=== PATIENT | female | born 1945 ===

== ENCOUNTER 2017-09-06 11:03 | Inpatient (IN) | payer OTHER ==
[~2017-09-06] VITALS: Ht 157.4 cm; Wt 63.5 kg
--- NOTE | ~2017-09-06 | PR ---
[place], [place] PROGRESS NOTE [id number] #: [id number] ROOM: 315 DOCTOR: MARYURI CAREY MD BIRTHDATE: [birth year] DOS: 09/23/2017 ADDENDUM CHIEF COMPLAINT: "I hope I am going today." SUMMARY OF THE VISIT: The patient was interviewed in the dining area. She once again reiterated her wish to be able to leave and go into a care home. She reports that she is feeling well and is anxious to do so. She is exhibiting improved sleep and appetite. Later, she ambulated with some assistance down the [place]. She convincingly denies medication side effects. MENTAL STATUS AT DISCHARGE: The patient is alert and oriented with only mild time gaps. Mood does seem to be strongly trending towards euthymia. Affect is much more appropriate. There are no symptoms of teja or psychosis. For the most part memory is intact. PLAN: At this point in time is to discharge her to a long-term care facility. Unfortunately, we have been having difficulty finding a long-term care facility that is appropriate for her in the [facility]. We have increased our outreach now to facilities near [place] and also to facilities in the [facility] where her lives. He has expressed a desire to be able to move in with her into a long-term care facility and we will proceed with this discharge option. We will discharge the patient then to the least restrictive environment as soon as possible. MARYURI CAREY MD CM:PNTRANS [phone] MARYURI CAREY MD 09/24/17 0838 interface
--- NOTE | ~2017-09-06 | PR ---
[place], [place] PROGRESS NOTE NAME: NOAH GEORGE UNIT #: [id number] ROOM: 315 DOCTOR: MARYURI CAREY MD BIRTHDATE: [birth year] DOS: 09/15/2017 CHIEF COMPLAINT: "I don't feel quite right." SUMMARY OF THE VISIT: The patient was interviewed as she sat in a wheelchair at the end of the table, watching television. She reported to me that she was not feeling quite right and was feeling cloudy in her thoughts. She still is not sleeping and eating as well as she would like to and still having intrusive thoughts. MENTAL STATUS: She is alert and oriented with some mild time gaps. Mood does seem to be trending towards euthymia and affect is much more appropriate. There are no symptoms of hypomania or teja at the present time. Short term memory has gaps. PLAN: I will go ahead and start her on lactulose 30 grams b.i.d. given her elevated serum ammonia level of 63. I will discontinue the Depakote that was started upon admission in case it is contributing to her higher ammonia level and recheck later in her stay. I will discontinue the Haldol p.r.n. in lieu of increasing her straight Abilify from 5 to 10 mg at bedtime, continue to engage in individual and lemon milieu activity with the ultimate plan to return to the least restrictive environment when psychiatrically stable. MARYURI CAREY MD CM:PNTRANS [phone] MARYURI CAREY MD 09/15/17 1130 interface
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
--- NOTE | ~2017-09-06 | PR ---
[place], [place] PROGRESS NOTE [id number] UNIT #: [id number] ROOM: 315 DOCTOR: Sadia MTZ,TAYO BIRTHDATE: [birth year] DOS: 09/12/2017 SUBJECTIVE: The patient seen and spoke with the staff. Per staff, the patient is doing well. No behavior problems or issues. Took her medication, Depakote last night. The patient was on the [place] chair. She said that she took the Depakote and the Abilify. She said that she feels she is not shaking as much. Denied any side effect from the medication. MENTAL STATUS EXAMINATION: Pleasant, cooperative, described her mood as "okay." Affect, mood congruent. Thought process goal directed. No flight of ideas or loosening of association. She denied auditory or visual hallucination. No delusion or paranoia noted. She denied suicidal ideation, intent or plan. She also denied homicidal ideation, intent or plan. ASSESSMENT: Bipolar disorder, mixed type. PLAN: 1. Continue current medication and care. 2. Continue redirection. 3. Mcmanus milieu. 4. Final medication management and discharge plan by the regular team. TAYO MTZ MD CM:PNTRANS [phone] Sadia MTZ 09/12/17 0956 interface
--- NOTE | ~2017-09-06 | PR ---
[place], [place] PROGRESS NOTE [facility]: [id number] UNIT #: [id number] ROOM: 315 DOCTOR: MARYURI CAREY MD BIRTHDATE: [birth year] DOS: 09/17/2017 CHIEF COMPLAINT: "I slept a little better, thank you." SUMMARY OF THE VISIT: The patient was interviewed once again in the dining area where she was eating her breakfast. She reported that she slept better, but is still feeling depressed and overwhelmed. Of note, as I approached her, tremors of her upper extremities seem to worsen, whether this is volitional or anxiety driven is unclear. MENTAL STATUS: She remains alert and oriented to person, place, and approximate to time. Mood does seem to be trending towards euthymia. Affect is more appropriate. Her responses still tend to be short and simple and she is not spontaneous. There are no symptoms of teja or hypomania and she is guarded as far as any symptoms suggestive of psychosis. Memory for short term events has gaps, otherwise she is intact. PLAN: I will go ahead and increase her Cogentin slightly from 0.5 mg daily to 0.5 mg twice daily. I will have nursing monitor her tremors to see if there is a pattern to their presentation and get a better sense if this is somatization versus reality. We will continue to explore placement options, so we can potentially place her closer to family living in [facility]. We will discharge then when psychiatrically stable. MARYURI CAREY MD CM:PNTRANS [phone] MARYURI CAREY MD 09/17/17 1040 interface
--- NOTE | ~2017-09-06 | PR ---
[place], [place] PROGRESS NOTE [id number] UNIT #: [id number] ROOM: 315 DOCTOR: Sadia MTZ,TAYO BIRTHDATE: [birth year] DOS: 09/08/2017 PSYCHIATRIC PROGRESS NOTE SUBJECTIVE: Patient seen and spoke with the staff. Per staff, patient is doing good. Slept well. No behavioral problems or issues. Med compliant. Patient was in her room. She reports doing well and feeling better. She feels the medication is helping her. She said that she is looking forward to go with her daughter. She did not express any problems or concerns, but she told me that she does not want to take the trazodone. MENTAL STATUS EXAMINATION: Patient was pleasant and cooperative. Described her mood as "okay." Affect, mood congruent. Thought process goal directed. No flight of ideas or loosening of association. She denied auditory or visual hallucination. No delusion or paranoia noted. She denied suicidal ideation, intent or plan. She also denied homicidal ideation, intent or plan. Insight and judgment poor to fair. ASSESSMENT: Bipolar disorder, mixed type. PLAN: 1. I will discontinue her trazodone. 2. I will continue the other medications. 3. Continue redirection. 4. Mcmanus milieu. TAYO MTZ MD CM:PNTRANS [phone] Sadia MTZ 09/09/17 0043 interface
--- NOTE | ~2017-09-06 | PR ---
[place], [place] PROGRESS NOTE NAME: [facility] [id number] UNIT #: [id number] ROOM: 315 DOCTOR: Sadia MTZ,TAYO BIRTHDATE: [birth year] DOS: 09/09/2017 PSYCHIATRIC PROGRESS NOTE SUBJECTIVE: The patient seen and spoke with the staff. Per staff, the patient is doing well, still somatic. Slept well last night. No behavior problems or issues. The patient was pleasant and cooperative. She reports doing good. She feels that the medication is helping her. She denies any side effect from the medication also. She said that she would like to go back with her daughter in [place] and does not want to go back with . MENTAL STATUS EXAMINATION: The patient was pleasant, cooperative, described her mood as "okay." Affect, mood congruent. Thought process goal directed. No flight of ideas or loosening of association. She denied auditory or visual hallucination. No delusion or paranoia noted. She denied suicidal ideation, intent or plan. She also denied homicidal ideation, intent or plan. ASSESSMENT: Bipolar disorder, mixed type. PLAN: 1 Continue current medication and care. 2. Continue redirection. 3. Encourage activity and lemon milieu. TAYO MTZ MD CM:OXANA [phone] Sadia MTZ 09/09/17 2104 interface
--- NOTE | ~2017-09-06 | PR ---
[place], [place] PROGRESS NOTE [id number] UNIT #: [id number] ROOM: 315 DOCTOR: Sadia MTZ,TAYO BIRTHDATE: [birth year] DOS: 09/11/2017 PSYCHIATRIC PROGRESS NOTE SUBJECTIVE: Patient seen and spoke with the staff. Per staff, patient is shaking a lot and leaning on one side and also reported to the staff that she is not feeling good. When I went to see the patient, patient was in the day area. She was shaking uncontrollably. She said that she would like to stop the Risperdal as I told her in the past. Initially, I was a little bit hesitant because patient did not want to change the Risperdal, but since she wanted to now, we talked about Abilify. Patient agreed with that. Patient also reported racing thoughts and mood swings and wants to give a trial on a mood stabilizer, Depakote. She reports good sleep. Denied any problem with her appetite. MENTAL STATUS EXAMINATION: Patient was pleasant and cooperative. Described her mood as "I don't know." Affect broad range. Thought process goal directed. No flight of ideas, loosening of association. She denied auditory or visual hallucination. No delusion or paranoia noted. She denied suicidal ideation, intent or plan. She also denied homicidal ideation, intent or plan. ASSESSMENT: Bipolar disorder, mixed type. PLAN: 1. I will discontinue her Risperdal. 2. I will start her on Abilify 5 mg at night. 3. I will start her on Depakote 125 mg twice a day. TAYO MTZ MD CM:OXANA [phone] Sadia MTZ 09/12/17 0244 interface
--- NOTE | ~2017-09-06 | PR ---
[place], [place] PROGRESS NOTE NAME: [facility] [id number] UNIT #: [id number] ROOM: 315 DOCTOR: Sadia MTZ,TAYO BIRTHDATE: [birth year] DOS: 09/10/2017 PSYCHIATRIC PROGRESS NOTE SUBJECTIVE: The patient seen and spoke with the staff. Per staff, the patient is doing well. No behavioral problems or issues. Medication compliant. Reportedly, the patient's daughter wanted to take her to [place] and keep her with her. The patient was pleasant, cooperative. She reported doing well. Denied depressed mood or hopelessness. Denied any other neurovegetative signs and symptoms of depression. She vehemently denied any thoughts of harming herself or her . She said that she is happy that she is going to go back to go and stay with her daughter. MENTAL STATUS EXAMINATION: The patient was pleasant, cooperative, described her mood as "good." Affect, mood congruent. Thought process goal directed. No flight of ideas or loosening of associations. She denied auditory or visual hallucination. No delusion or paranoia noted. She denied suicidal ideation, intent or plan. She also denied homicidal ideation, intent or plan ASSESSMENT: Bipolar disorder, current episode mixed. PLAN: 1. Continue current medication and care. 2. Continued addiction. 3. Mcmanus milieu. 4. Discharge planning. TAYO MTZ MD CM:OXANA [phone] Sadia MTZ 09/10/17 2340 interface
--- NOTE | ~2017-09-06 | PR ---
[place], [place] PROGRESS NOTE NAME: NOAH GEORGE UNIT #: [id number] ROOM: 315 DOCTOR: MARYURI CAREY MD BIRTHDATE: [birth year] DOS: 09/19/2017 CHIEF COMPLAINT: "When do I get to go." SUMMARY OF THE VISIT: The patient was interviewed as she sat in the dining area in a wheelchair waiting for her breakfast. She engaged readily in conversation and was fixated on being able to leave the hospital and go to a jail that was closer to her family in [place]. Of note, she was much less tremorous this morning than she had been previously. She seemed to engage more readily and was much more goal directed in her thinking. Nurses report continued somatization and fluctuations in her mental status, however. MENTAL STATUS: She is alert and oriented to person, place, very approximate to time. Mood does seem to be strongly trending towards euthymia. Affect is much more appropriate. There is no teja or hypomania. There are no overt auditory or visual hallucinations voiced. Memory for the most part is intact. PLAN: I will go ahead and increase her Mysoline from 25 to 50 mg at bedtime. Continue to engage in individual and lemon milieu activity with the ultimate plan to discharge to [facility] when psychiatrically stable. MARYURI CAREY MD CM:PNTRANS [id number] MARYURI CAREY MD 09/19/17 1029 interface
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
--- NOTE | ~2017-09-06 | PR ---
[place], [place] PROGRESS NOTE NAME: NOAH GEORGE UNIT #: [id number] ROOM: 315 DOCTOR: MARYURI CAREY MD BIRTHDATE: [birth year] DOS: 09/18/2017 CHIEF COMPLAINT: "I would rather go to [place]." SUMMARY OF THE VISIT: The patient was interviewed in the dining area where she sat in her wheelchair. The patient initially as I approached appeared to be sleeping; however, she very quickly awoke, engaged in conversation and began eating without difficulty. Of note, the tremor that was so evident in previous visits did not seem to be there, instead she seemed to be feigning sedation. I discussed with her the options that she had in either to return home to her or to a fdc that would be approximately an hour away from [place]. She voiced a preference to return to a fdc that would be close to [place] rather than returning home at this point. A discussion yesterday with the treatment team indicated that the family noted that she had improved greatly with Mysoline as far as improving her overall level of not having tremors. At this point in time, I will go ahead and make the switch over from the Cogentin to the Mysoline. MENTAL STATUS: She is alert and oriented with some time gaps. Her responses tended to be short and simple and she was not spontaneous, but she was at least engaging. There is no symptom suggestive of hypomania or teja. There were no overt auditory or visual hallucinations. No delusions, no paranoia was voiced. Short term memory has gaps. PLAN: As mentioned previously, I will discontinue Cogentin and start Mysoline 25 mg at bedtime. Continue to explore placement options, discharging then when psychiatrically stable and when an appropriate option presents itself. MARYURI CAREY MD CM:PNTRANS MARYURI CAREY MD 09/18/1745 interface
--- NOTE | ~2017-09-06 | DS ---
[place], [place] DISCHARGE SUMMARY NAME: NOAH GEORGE UNIT #: [id number] ROOM: 315 DOCTOR: MARYURI CAREY MD BIRTHDATE: [birth year] DOS: 09/22/2017 ADDENDUM CHIEF COMPLAINT: "Am I going to be able to leave today?, I am ready to go." SUMMARY OF HOSPITAL COURSE: The patient was interviewed in the dining area where she sat comfortably in her wheelchair. Of note, as I approached, there were markedly decreased tremors. She engaged readily in normal conversation. She was focused on being able to leave the hospital and was hopeful to be able to go into a jail that was at least close to [place]. We discussed at length what the process was going to be and that she would be discharged to a jail and that hopefully this would be a temporary solution as she awaited an actual permanent placement into a jail in the [place] area. She nodded in approval and voiced that this would be a positive step for her. Of note, the patient did not exhibit any agitation or aggression. There was no mood lability. There were no suicidal thoughts, homicidal thoughts or any self-injurious thoughts. MENTAL STATUS NOW AT FINAL DISCHARGE: The patient is alert and oriented with some mild gaps. Mood does seem to be strongly trending towards euthymia. Affect is much more appropriate. As mentioned previously, there is no teja or hypomania. There are no gross psychotic symptoms. Memory for the most part is intact. FINAL DIAGNOSES: As per the previous discharge summary. DISPOSITION: To a long-term care facility. All of her prescriptions have been printed and will be sent with her. MARYURI CAREY MD CM:DISCHARG [id number] MARYURI CAREY MD 09/23/17 0125 interface
[2017-09-06] MEDS ORDERED: FLONASE ALLERG9.9 ML NAS (11:46)
[2017-09-06] MEDS ORDERED: DITROPAN XL5 MG PO (11:48)
[2017-09-06] MEDS ORDERED: ASPIR LOW81 MG PO (11:50)
[2017-09-06] MEDS ORDERED: LAMICTAL150 MG PO (11:52)
[2017-09-06] MEDS ORDERED: TRAZODONE50 MG PO (11:53)
[2017-09-06] MEDS ORDERED: ADVIL200 MG PO (11:54)
[2017-09-06] MEDS ORDERED: RISPERDAL3 M1 PO (11:54)
[2017-09-06] MEDS ORDERED: NEURONTIN100 MG PO (11:55)
--- NOTE | 2017-09-06 13:33 | NUR ---
NOAH GEORGE a 72 year old F admitted via ambulance from the ADMITTING as a emergency 72 hr. hold admission. Arrived on unit at 1333. ALLERGIES: ATIVAN, XANAX, SEROQUEL AND NEUROTIN. Vital signs are: 98.1-72-16 190/92. The client signed the following forms with stated understanding: Authorization For The Release of Medical Information, Clothing List, Consent to Voluntary Admission and Hospitalization, Consent and Release Forms/Receipt of Rights, Acknowledgement of Advance Directive Information, Behavioral Health Consent Form, and Informed Consent of Medications. Admitted under the services of Dr. BIBI M.D.,[facility]. A search was conducted and hazardous articles were removed. Client was oriented to the unit. COREEN DUFFY
[2017-09-06] MEDS ORDERED: NORVASC10 MG PO (13:38)
--- NOTE | 2017-09-06 13:42 | NUR ---
DR. SZYMANSKI NOTIFIED OF NEW ADMISSION, MEDICATIONS AND DX LIST UPDATED FOR REVIEW. PATIENT WILL BE UNDER THE CARE OF DR. OROSCO.
--- NOTE | 2017-09-06 13:55 | NUR ---
DR. SZYMANSKI NOTIFIED OF MANUAL BP 190/92.
[2017-09-06 13:57] VITALS: BP 190/92
--- NOTE | 2017-09-06 15:25 | NUR ---
DR CUI NOTIFIED OF PATIENT'S ALLERGY TO NEUROTIN.
[2017-09-06] MEDS ORDERED: TRAMADOL HCL50 MG PO (15:35)
[2017-09-06] MEDS ORDERED: BISA-LAX5 MG PO (15:36)
[2017-09-06] MEDS ORDERED: VITAMIN D50000 UNIT PO (15:36)
[2017-09-06] MEDS ORDERED: DOK100 MG PO (15:37)
--- NOTE | 2017-09-06 15:48 | NUR ---
MANUAL BP CHECKED 180/80.
--- NOTE | 2017-09-06 16:04 | NUR ---
PATIENT IS VERY FEARFUL, OTHER PATIENTS WALKING PAST ROOM, PATIENT GOT STARTLED AND COMPLAIN OF CHEST PAIN. DR CUI NOTIFIED OF CHEST PAIN. PATIENT ASSISTED IN WHEELCHAIR IN DINING ROOM WITH OTHER PATIENT. NO FURTHERS COMPLAINTS AT THIS TIME.
--- NOTE | 2017-09-06 16:44 | NUR ---
DR. CUI NOTIFIED OF PATIENT REFUSING EKG TO BE DONE.
--- NOTE | 2017-09-06 17:48 | NUR ---
SPOKE WITH DAUGHTER REGARDING PATIENT'S CONDITIONS, BEHAVIORS AND REFUSAL OF TREATMENT/MEDICATIONS. PATIENT'S DAUGHTER STATED THAT HER MOM HAS BEEN ON XANAX FOR YEARS, OVERDOSED ONCE AND NOW THE MEDICATION IS LISTED AN ALLERGY. UPDATED DR. MTZ ON PATIENT'S REFUSAL OF TRAZDONE AND ALLERGY LIST.
[2017-09-06 19:58] VITALS: BP 143/70
--- NOTE | 2017-09-06 21:11 | NUR ---
PT MAKING FREQUENT DEMANDS OF STAFF DURING PREVIOUS SHIFT. BEHAVIOR HAS CONTINUED TO THIS POINT. PT FREQUENTLY PULLING WAITER/WAITRESS ECONOMY CLASS KIM CORD TO "TUCK MY ARM IN." AFTER THE FIRST TWO OCCURENCES, NURSE LIMIT SET WITH PATIENT, EDUCATING HER REGARDING THE IMPORTANCE OF PRIORITIZATION OF CARE. PT THEN TUCKED HER OWN ARM INTO THE BLANKET. CONTINUE TO REINFORCE LIMITS WITH POSTIVE AFFIRMATION.
--- NOTE | 2017-09-07 00:48 | NUR ---
24HR CHART CHECKS COMPLETE
[2017-09-07 04:26] LABS: ALBUMIN 3.1 gm/dl (3.1-4.5); ALKALINE PHOSPHATASE 64 U/L (45-117); BUN 15 mg/dl (7-24); CHLORIDE 103 mmol/L (98-107); CHOLESTEROL 236 mg/dL (<200); CREATININE 0.83 mg/dL (0.55-1.02); HDL CHOLESTEROL 73 mg/dl (40-60); LDL CHOLESTEROL 155 mg/dL (9-159); POTASSIUM 4.1 mmol/L (3.5-5.1); SGOT/AST 6 IU/L (3-35); SGPT/ALT 18 U/L (12-78); SODIUM 139 mmol/L (136-145); TOTAL PROTEIN 6.7 gm/dL (6.4-8.2); TRIGLYCERIDES 42 mg/dl (<150); VLDL CHOLESTEROL 8 mg/dL (6-40)
--- NOTE | 2017-09-07 04:30 | NUR ---
PT YELLING OUT "HELP ME." NURSE COMMANDS STAFF TO "PUT MY LEGS DOWN." PT CAPABLE OF AMBULATING HERSELF AND POSTITIONING HERSELF WITH NO DEFICITS IN LEG STRENGTH. NURSE REPOSITIONED PATIENT, THEN SHE WOULD BEND HER KNEES AGAIN UNDER THE BLANKET DELIBRETLY, DEMANDING FOR HER LEGS TO BE "PUT DOWN" AGAIN. NURSE LIMIT SET WITH PATIENT. UNABLE TO VOICE THE TRUE CAUSE OF THESE ATTENTION SEEKING BEHAVIORS. PT UNSATISFIED WITH ANY ATTEMPTS STAFF MAKES TO ACCOMMODATE NEEDS. ENCOURAGE APPROPRIATE VOCALIZATION OF EMOTIONS TO COMBAT SOMATIC COMPLAINTS.
--- NOTE | 2017-09-07 05:31 | NUR ---
PT YELLING OUT FOR STAFF FOR ASSITANCE INTO WHEELCHAIR. PT WHEELED INTO THE DINING ROOM TO AWAIT BREAKFAST, PER HER REQUEST. SOON STAFF ARRIVED IN THE DINING ROOM, PT REQUESTED TO RETURN TO BED. PT INSTRUCTED THAT THIS BEHAVIOR IS UNNACCEPTABLE. NURSE, YET AGAIN, ENCOURAGED PATIENT TO VERBALIZE EMOTIONS LEADING TO THIS BEHAVIOR AND ANY INSIGHT INTO HOW WE CAN MEET HER NEEDS. PT REPLIED "HOW ARE YOU SO CRUEL, HELP ME." PT REFUSES TO ACKNOWLEDGE MANIPULATIVE BEHAVIORS. CONTINUE TO LIMIT SET AND REINFORCE POSITIVE BEHAVIORS.
--- NOTE | 2017-09-07 06:13 | NUR ---
PT SLEPT <2HRS WITH FREQUENT INTERRUPTIONS. REFER TO FLOWSHEET FOR ADDITIONAL INFO.
[2017-09-07 08:06] VITALS: BP 154/78
--- NOTE | 2017-09-07 15:40 | NUR ---
PT ALERT TO PERSON,PLACE AND TIME. PT MED COMPLIANT WITHOUT DIFFICULTY, MED EDUCATION PROVIDED. PT MOOD IS IRRITABLE AT TIMES. PT DEMANDING OF STAFF, MAKING MULTIPLE REQUESTS OF STAFF FOR THINGS THAT PT IS CAPABLE OF DOING, SUCH MOVING HER ARM UNDERNEATH OF HER BLANKET. PT REFUSED TO FEED HERSELF LUNCH, STATING " I NEED YOU TO DO IT FOR ME", ADVISED PT THAT SHE WAS ABLE TO FEED HERSELF BREAKFAST AND RE-ENFORCED IMPORTANCE OF PT MAINTAINING INDEPENDENCE OF ADL'S INCLUDING FEEDING SELF, FINGER FOODS PROVIDED. NO HALLUCIANTIONS OR DELUSIONS NOTED. PT DENIES ANY HOMICIDAL/SUICIDAL THOUGHTS. PT UP TO WHEELCHAIR REQUIRING 1 ASSIST FOR TRANSFERS. PT CONTINENT OF BOWEL AND BLADDER. TREATMENT PLAN TARGETS #1- ALTERTED THOUGHT PROCESS R/T INCREASED CONFUSION AEB VISUAL HALLUCINATIONS AND THREATENING BEHAVIORS, #2- AT RISK FOR FALLS. FALL PRECAUTIONS MAINTAINED PER POLICY. PLAN IS TO MONITOR PT BEHAVIORS ON Q15 MIN SAFTEY CHECKS, ENCOURAGE PT TO VOICE ANY HALLUCINATIONS, PRESENT RELAITY TO PT WITH EACH INTERACTION NEEDED.
--- NOTE | 2017-09-07 18:31 | NUR ---
ATTEMPTED TO NOTIFY OF PT ABNORMAL SRP LEVEL. NO ANSWER AT THIS TIME.
[2017-09-07 19:49] VITALS: BP 131/70
--- NOTE | 2017-09-07 21:19 | NUR ---
REFUSED CALAZIME LOTION AND BABY ASA. STATES ONLY TAKE ASA ONCE A DAY AND THE BUTTOCK CREAM AFTER SHOWER. REFUSED TRAZADONE BECAUSE SHE SAYS HER PSYCHIATRIST SAYS SHE DOESN'T NEED IT ANY MORE. TRIED TO DISCUSS THE IMPORTANCE OF TAKING MEDICATION THE HOSPITAL PSYCHIATRIST DEEMS NECESSARY TO HELP HER GET BETTER. UNABLE TO REDIRECT CLIENT.
--- NOTE | 2017-09-07 22:21 | NUR ---
CLIENT WATCHES OTHER PEERS AND WANTS WHAT THEY HAVE. IF THEY ARE BEING FED SHE FEELS SHE NEEDS TO BE FED. IF THEY ARE BEING PUSHED IN A WHEELCHAIR DUE TO WEAKNESS SHE ALSO FEELS SHE NEEDS TO BE PUSHED. DISCUSSED WITH CLIENT THAT I WOULD GET HER A WALKER THAT IS WHAT SHE USES AT HOME BUT SHE REFUSED. STATES SHE IS WAITING FOR PHYSICAL THERAPY TO COME SEE HER. ASKED TO BE FED LIKE PEER AND EXPLAINED THAT SHE IS CAPABLE OF FEEDING SELF AND WE ARE HERE TO HELP HER NOT MAKE HER DEPENDENT. DISCUSSED THE IMPORTANCE OF HER DOING MUCH FOR HERSELF POSSIABLE, LIKE PUSHING SELF DOWN BANG IN WHEELCHAIR TO PREVENT MUSCLE BREAKDOWN AND WEAKNESS. CLIENT DID COMPLETE ALL THE TASKS ABOVE WITHOUT ANY DIFFICULTY. WILL CONTINUE EMOTIONAL SUPPORT
--- NOTE | 2017-09-08 02:04 | NUR ---
24 HR chart check completed.
--- NOTE | 2017-09-08 06:42 | NUR ---
SLEPT WELL PAST 220
[2017-09-08 08:57] VITALS: BP 141/76
--- NOTE | 2017-09-08 10:00 | NUR ---
Treatment Team was hedl withthe following: Dr. Durant (phone), RNs, AT, SWs. Pt knows that she is here d/t Bipolar episode. Pt wants to go to [place] to live to be closer to her Dtr.
--- NOTE | 2017-09-08 11:04 | NUR ---
PHYSICAL THERAPY Physical Therapy Evaluation completed this date. See eval document for further details. Will begin PT intervention to address the impairments of trunk and sandro LE weakness, decreased functional mobility I, and difficulty [place]ulating[place] [address] based on chart review and PT eval. Cierra Currie, PT
--- NOTE | 2017-09-08 11:39 | NUR ---
Exercise/Reminiscing/Positive Traits Patient did attend group as well as participated in group this morning.Patient was appropriate during group. Patient interacted with other patients positivly,as well as giving positive encouragement to others and herself
--- NOTE | 2017-09-08 13:05 | NUR ---
SW COMPLETED PASRR AND FAXED IT TO [facility] FOR PROCESSING.
--- NOTE | 2017-09-08 14:24 | NUR ---
Patient c/o poor sleep and being tired. Patient agreed to Ot eval 09/09/17 am. OTR will attempt at a later date. Thank you for this referral. Adenike Herrera OTR/L
--- NOTE | 2017-09-08 15:47 | NUR ---
Craft and positive trait group Patient attended group and actively participated. Patient easily stated positive traits about self however increased difficulty with self traits. Patient reports feeling happier after attended group and realizes positive things about self.
[2017-09-08 18:51] LABS: BILIRUBIN NEGATIVE (NEGATIVE); BLOOD NEGATIVE (NEGATIVE); CLARITY SL CLOUDY (CLEAR); COLOR YELLOW (YELLOW); GLUCOSE NEGATIVE (NEGATIVE); KETONE NEGATIVE (NEGATIVE); LEUKO ESTERASE NEGATIVE (NEGATIVE); NITRITE NEGATIVE (NEGATIVE); UROBILINOGEN 0.2 E.U./dl (0.2-1.0)
[2017-09-08 18:59] LABS: BACTERIA TRACE; WBC 0-2 wbc/hpf (0-5)
--- NOTE | 2017-09-08 19:34 | NUR ---
NOAH IS ALERT AND ORIENTED X4. PLEASANT AND COPOERATIVE WITH STAFF. MOOD IS DEPRESSED THIS SHIFT. DENIES ANY SI/HI. MEDICATION COMPLIANT WITHOUT DIFFICULTY. INSIGHT NOTED THIS SHIFT WHEN SHE EXPRESSED SHE WAS ADMITTED D/T A "BIPOLAR EPISODE." ATTENDING AND PARTICIPATING IN GROUP THERAPY. STATES SHE IS STARTING TO FEEL BETTER. DENIES ANY SENSORY DISTURBANCES AND NONE ARE NOTED. APPETITE FAIR FOR MEALS. WILL CONTINUE TO ENCOURAGE PT TO ATTEND AND PARTICIPATE IN GROUP THERAPY. CONTINUE Q15 MIN CHECKS PER OBSERVATION ORDERS.
[2017-09-08 20:05] VITALS: BP 142/68
--- NOTE | 2017-09-08 23:37 | NUR ---
RESTING AT THIS TIME. IRVING HOLLAND CALLED OVERHEAD AND SHE IMMEDIATLY CALLED STAFF TO ROOM STATING "I HAVE CHEST PAIN TOOL". VITALS STABLE. HEART RATE REGULA NON BOUNDING. SPOKE WITH CLIENT AND SHE ADMITTED THAT SHE HEARD THE IRVING BLUE AND THOUGHT IT COULD BE ABOUT HER. EMOTIONAL SUPPORT PROVIDE.
--- NOTE | 2017-09-09 04:17 | NUR ---
24 HR chart check completed. UP A COUPLE TIMES TO VOID. EMOTIONAL REASSURANCE NEEDED MORE THIS SHIFT FOR HER C/O ANXIETY AND PAIN. MOVING SELF IN BED WITHOUT ASSISTANCE
--- NOTE | 2017-09-09 06:55 | NUR ---
slept well past 0100am
[2017-09-09 08:13] VITALS: BP 119/64
--- NOTE | 2017-09-09 08:45 | NUR ---
PHYSICAL THERAPY Pt seen this AM 1:1 for her therapy session, Pt up in the day room in her wheelchair. Wheeled out into the de [place] santos, with verbal cueing on what we were going to do. Transfer sit/stand and up on wheeled walker standing balance MOD A X 1. Gait 45' X 1, MOD A X 1, with cueing for safety and she said that she was ready to sit, sitting rest. Followed by another gait with W/W 105' X 1, cueing for safety and that she can do this sitting rest. End with act Ex to bilateral LE of marching, LAQ's, ankle pumps with cueing for each X 20 reps each. MARIA DEL CARMEN LOPEZ PHLEBOTOMY MANAGER.
--- NOTE | 2017-09-09 09:26 | NUR ---
TREATMENT TEAM WAS HELD WITH THE FOLLOWING: DR. ESTEBAN (PHONE), RNs, AT, SW. PT HAVING SOMATIC COMPLAINTS. SW REPORTED PT TO BE DISCHARGED TO [facility] IN [facility] PER DTR'S AND PT'S REQUEST. PT WAS SUBMITTED YESTERDAY.
--- NOTE | 2017-09-09 10:49 | NUR ---
Spoke with dtr. Sun on phone in regards to more referrals for the [place] area. pt. dtr states that "[facility]" and "[facility]" would be good places for her mother tpo go. This SWS also reinforced that referrals will need to be sent out to several places in hopes of finding an open bed. The dtr. sattes to send out referrals in the [facility], [facility]'s.
--- NOTE | 2017-09-09 11:35 | NUR ---
Social Raymond Patient attended group with appropriate behaviours and participation. Patient able to answers social questions on board with well thought out answers for coping skills/self awareness.
--- NOTE | 2017-09-09 11:46 | NUR ---
PT SIGNED IN VOLUNTARY PT STATED SHE UNDESTOOD WHAT A VOLUNTARY ASMISSION CENSENT WAS. PT WAS READ THE VOUNTARTY CONSENT AND AGREED. VOLUNTARY WAS WITNESSED BY THIS NURSE AND SOCIAL WORK
--- NOTE | 2017-09-09 17:01 | NUR ---
[facility] KATIUSKA GOMEZ INFORMING SW THAT PT WILL E HAVING A DRGabrielle TO CALL TO DR. MTZ BETWEEN 10AM - 1PM O 09/10/17. NOTIFIED DIRECTOR OF CALL TO TELL DR. DR. MTZ.
[2017-09-09 20:00] VITALS: BP 134/64
--- NOTE | 2017-09-10 01:56 | NUR ---
24 HR chart check completed.
--- NOTE | 2017-09-10 06:17 | NUR ---
PT CONTINUES TO HAVE A WIDE VARIETY OF SOMATIC COMPLAINTS, HOPELESS AND HELPLESS. MED COMPLIANT WITH OUT DIFFICULTY, STATING SHE COULD NOT DRINK WATER BECAUSE SHE COULD NOT LIFT THE CUP TO HER LIPS. PT PROVIDED 1-1 DENYING HALLUCINATIONS AT THIS TIME. MED EDUCATION PROVIDED PT VERBALIZED UNDERSTANDING. CONSUMED HS SNACK, SLEPT 8 HOURS WITH OUT INTURRUPTION. Q 15 MIN CHECKS FOR SAFETY MAINTAINED.
--- NOTE | 2017-09-10 07:49 | NUR ---
09/09/17 Afternoon Self Esteem Story/Coping Skills Jeopardy Patient did not attend group. Patient refused,wanting to lay down. Patient was encouraged to join group but paient absolutely refused to join group
[2017-09-10 08:00] VITALS: BP 141/66
--- NOTE | 2017-09-10 10:43 | NUR ---
PHYSICAL THERAPY Carine seen this AM pt supine in bed and not going to get up or take her therapy, will stop back later. MARIA DEL CARMEN LOPEZ LIVE IN HOUSEKEEPER NANNY.
--- NOTE | 2017-09-10 10:45 | NUR ---
PHYSICAL THERAPY I stopped back 1 hour 20 min later Pt up in the day room just finished her breakfast. Carine said no and i am not getting up! MARIA DEL CARMEN LOPEZ DISPATCH LEAD.
--- NOTE | 2017-09-10 11:15 | NUR ---
Reminiscing Patient was in attendence for group with limited participation. Patient would fall asleep for a time then waken to participate. Patient did not show signs of hallucinations throughout group.
--- NOTE | 2017-09-10 14:37 | NUR ---
case management received a message from Rosalba at [employer], after peer to peer was done, last covered day is 09/09/17, all days after are denied
--- NOTE | 2017-09-10 15:58 | NUR ---
Crb4houieius my strengths Patient was in attendence for group as well as participated. Patient did leave for personal reasons approxamatley 45 minutes into group. Patient showed no signs of confusion or stated any visual hallucinations through out group
--- NOTE | 2017-09-10 18:37 | NUR ---
PATIENT HAS BEEN MORE ISOLATIVE AND LESS INTERACTIVE THIS SHIFT. CALM AND COOPERATIVE WITH STAFF. MEDICATION COMPLIANT WITHOUT DIFFICULTY. ALERT AND ORIENTED WITH PERIODS OF CONFUSION NOTED. INCREASE STAFF ASSISTANCE NEEDED FOR ADLS NOTED. INCREASE WEAKNESS WITH ADHEDONIA NOTED. BILATERAL UPPER EXTREMITY TREMORS NOTED. ATTENDING GROUP THERAPY AT TIMES WITH MUCH STAFF ENCOURAGEMENT. APPETITE GOOD THIS SHIFT, TAKING FLUIDS WELL. CONTINUE Q15 MIN OBSERVATION CHECKS PER ORDERS. CONTINUE TO ENCOURAGE PT TO PARTICIPATE IN GROUP THERAPY.
[2017-09-10 19:22] VITALS: BP 141/72
--- NOTE | 2017-09-11 00:15 | NUR ---
PT VOICING PAIN TO BLE LEVEL OF 4 CRAMPY UNRELIEVED BY REPOSITIONING. TYLENOL 650 MG ADMINISTERED.
--- NOTE | 2017-09-11 01:10 | NUR ---
PT SLEEPING SOUNDLY AT THIS TIME PRN TYLENOL EFFECTIVE
--- NOTE | 2017-09-11 03:57 | NUR ---
24 HR chart check completed.
--- NOTE | 2017-09-11 05:29 | NUR ---
PT ALERT TO PERSON PLACE AND TIME WITH PERIODS OF CONFUSION, GENERALIZED WEAKNESS NOTED, PT REFUSED HS SNACK AND GROUP. 1-1 PROVIDED VOICING FRUSTRATION WITH PHYSICAL AILMENTS. NO TREMORS NOTED TO UPPER OR LOWER EXTREMETIES. ABLE TO MAKE NEEDS KNOWN FLUIDS ENCOURAGED. MED EDUCATION PROVIDED AND PT VERBALIZED SOME UNDERSTANDING OF MEDICATIONS. SLEPT POORLY THROUGHOUT NIGHT. Q 15 MIN CHECKS FOR SAFETY MAINTAINED, BED AND BODY ALARM IN PLACE. SLEPT 3 HOURS
[2017-09-11 08:00] VITALS: BP 132/72
--- NOTE | 2017-09-11 09:19 | NUR ---
TREATMENT TEAM WA HELD WITH THE FOLLOWING: DR. MTZ (PHONE), RNs, AT, SW. PT IS EXPERINECING INCREASED WEAKNESS AND TREMORS AND IS ACTING ODD. DR. MTZ TO MAKE MEDICATION CHANGES. PASRR NOT BACK. HOLD DISCHARGE.
--- NOTE | 2017-09-11 09:39 | NUR ---
PHYSICAL THERAPY Patient seen this am 1:1 for therapy sitting at breakfast table in w/c and presented with increased global tremors. Patient required multiple v/c's to complete seated B LE therex, all planes, 2 x 10 each to increase LE stength. Patient attempted several sit to stand tranfers, Max A, but was unable to complete secondary to increased confusion and Poor technique with hand placement. Patient remained in w/c in breakfast room with body alarm and staff Supervision. Will continue per POC as able to improve safe transfers and mobility. Duglas Ghosh PTA
--- NOTE | 2017-09-11 10:17 | NUR ---
MOOD IS STABLE AND EUTHYMIC WITH BLUNTED AFFECT. MEDICATION COMPLIANT WITHOUT DIFFICULTY. NO BEHAVIORS, DELUSIONS, OR HALLUCINATIONS NOTED. ATTENDS GROUP WITH MUCH ENCOURAGEMENT FROM STAFF WITH LIMITED PARTICIPATION. WILL CONTINUE TO ENCOURAGE PATIENT TO ATTEND AND PARTICIPATE IN GROUP THERAPIES. DENIES ANY SI/HI OR PLANS. LIMITED INTERACTIONS WITH PEERS NOTED. NAPS INTERMITTENTLY THROUGHOUT THE DAY. APPETITE POOR FOR BREAKFAST, REFUSED. TAKING FLUIDS WELL. FALLING PRECAUTIONS MAINTAINED PER POLICY. Q15 MIN OBSERVATION CHECKS MAINTAINED PER ORDERS. SEE [facility] FLOWSHEET FOR SPECIFIC MONITORING.
--- NOTE | 2017-09-11 13:27 | NUR ---
Tabitha/Ivet Patient was in attendence for group but for almost all of group was asleep in her chair. During the last few minutes Patient did wake up and began to participate. During this time patient showed no signs of confussion or visual hallucinations
--- NOTE | 2017-09-11 13:58 | NUR ---
AND ON UNIT TO ASSESS PATIENT. MADE AWARE OF ABNORMAL "STIFFNESS," TREMORS, AND NECK POSTITIONING.
--- NOTE | 2017-09-11 15:42 | NUR ---
Fears Patient did attend group. Patient was asleep for most of group but when she woke up she began to participate. Patient showed no confusions or voice any visual hallucinations while in group
[2017-09-11 20:00] VITALS: BP 120/56
--- NOTE | 2017-09-12 00:18 | NUR ---
PT KATRINA CALL LIGHT AND WHEN ANSWERED BY STAFF PT STATED "I NEED GOT UP SO I CAN EXERCISE" REORIENTED PT TO TIME. FLUIDS ENCOURAGED AT THIS TIME.
--- NOTE | 2017-09-12 00:23 | NUR ---
PT ALERT TO PERSON AND PLACE. MEDICATION COMPLIANT WITHOUT DIFFICULTY. NO SI/HI, HALLUCINATIONS OR DELUSIONS NOTED THIS SHIFT. PT HAS ROOM MATE PULL CALL LIGHT TO ASK QUESTIONS SUCH "I NEED COVERED UP I AM COLD, I AM HOT TAKE SOME OF MY BLANKETS OFF, CAN YOU PULL MY PILLOWS DOWN, AND HOW DID I GET MYSELF INTO THIS MESS" Q 15 MINUTE SAFETY CHECKS MAINTAINED. FALL PRECAUTIONS MAINTAINED PER POLICY. SEE [facility] FLOWSHEET FOR SPECIFIC MONITORING. NO S/S OF DISTRESS. NO C/O PAIN.
--- NOTE | 2017-09-12 05:39 | NUR ---
PT SLEPT APPROXIMATELY 8 HOURS THIS SHIFT. NO S/S OF DISTRESS. NO C/O PAIN.
--- NOTE | 2017-09-12 05:41 | NUR ---
24 HR chart check completed.
[2017-09-12 07:43] VITALS: BP 124/62
--- NOTE | 2017-09-12 09:34 | NUR ---
PHYSICAL THERAPY Mrs Davenport seen this AM 1:1 for her therapy session. Pt was up in the day room and wheeled out into the de [place] for her gait. Transfer sit/stand MOD A X 1, standing balance with wheeled walker MOD A X 1. Then gait 26' X 1, MOD MEDICAL TECHNOLOGIST CHEMISTRY X 1 with W/W and cueing for gait safety followed by sitting rest. Then another gait 70' X 1, this time and much better then her first gait, with verbal cueing for gait, walker turn safety. Pt back into the day room for her breakfast and was ready to sit. MARIA DEL CARMEN LOPEZ INGREDIENT HANDLER.
--- NOTE | 2017-09-12 09:42 | NUR ---
TREATMETN TEAM WAS HLED WITH THE FOLLOWING: DR. ESTEBAN(PHONE). RNs, SW, AT, DIRECTOR. MEDICATION ADJUSTED DUE TO TREMORS. STILL ACTING STRANGE. TREMORS MORE NOTICABLE. LYING HEAD STRAIGHT BACK.
--- NOTE | 2017-09-12 11:01 | NUR ---
ON UNIT TO ASSESS PT.
--- NOTE | 2017-09-12 11:30 | NUR ---
Remembering Our Tastes Patient was in attendence for group as well as participated. Patient requested X 3 for this staff member to get someone to take her to her room to lay down. This staff member spoke to Patients Milieu who informed me that Patient is not performing her ADLs on her own and needs to be doing this because is capable
--- NOTE | 2017-09-12 15:32 | NUR ---
Games Patient did not attend group this afternoon. Patient was asleep in her room
--- NOTE | 2017-09-12 17:08 | NUR ---
PT C/O BACK PAIN 08/26, PT REPOSITIONED IN CHAIR, OFFERED WARM BLANKET, ALL INTERVENTIONS INEFFECTIVE. PT MEDICATED WITH TYLENOL 650 MG PO PRN. WILL CONTINUE TO MONITOR.
--- NOTE | 2017-09-12 17:29 | NUR ---
PT ALERT TO PERSON AND PLACE. PT MED COMPLIANT WITHOUT DIFFICULTY, MED EDUCATION PROVIDED. PT MOOD IS HOPELESS/HELPLESS AT TIMES, REFUSING TO COMPLETE ADL'S THAT PT IS CAPABLE OF DOING, SUCH FEEDING SELF.PT CALM, INTERACTING WITH STAFF AND PEERS. NO HALLUCINATOINS OR DELUSIONS NOTED. PT DENIES ANY HOMICIDAL/SUICIDAL THOUGHTS. PT UP TO WHEELCHAIR, WILL NOT PROPEL SELF. PT REQUIRES 1 ASSIST FOR TRANSFERS. PT CONTINENT OF BOWEL AND BLADDER, WITH EPISODES OF INCONTINENCE NOTED, CARE PROVIDED NEEDED. PT TREATMENT PLAN TARGETS #1- ALTERED THOUGHT PROCESS R/T INCREASED CONFUSION. PLAN IS TO ENCOURAGE PT TO VOICE ANY HALLUCINATIONS OR DELUSIONS, PRESENT REALITY TO PT WITH EACH INTERACTION AND NEEDED, MONITOR PT BEHAVIORS ON Q15 MIN SAFETY CHECKS, ENCOURAGE PT TO PARTICIPATE IN ADL'S AND ENCOURAGE INDEPENDENCE.
[2017-09-12 19:55] VITALS: BP 140/66
--- NOTE | 2017-09-12 23:00 | NUR ---
PATIENT TREATMENT PLAN WITH ALTERED MENTAL STATUS RELATED TO INCRASED CONFUSION. PATIENT PREOCCUPIED WITH LIFTING HEAD OF BED UP AND RINGING FOR STAFF TO COVER HER UP WITH BLANKETS. PATIENT WITH TREMORS TO BILATERAL HANDS AND NEEDING ASSISTANCE WITH ADL'S. PATIENT REQUESTED DITROPAN WITH EFFECTIVE RESULTS. CONTINUES ON DIFLUCAN WITH NO ADVERSE REACTION. PATIENT ASKING OTHER RESIDENTS FOR HELP AND WOULD NOT HELP HERSELF. PATIENT ENCOURAGED TO PARTICIPATE IN HELPING WITH OWN NEEDS WITH NURSING STAFF TO ASSIST
--- NOTE | 2017-09-13 03:27 | NUR ---
24 HR chart check completed.
--- NOTE | 2017-09-13 06:48 | NUR ---
Q 15 MINUTE SAFETY CHECKS MAINTAINED. SLEPT 6 HOURS INTERMITTENTLY THROUGHOUT SHIFT. VOICES NO PAIN OR DISCOMFORT AT THIS TIME
[2017-09-13 08:25] VITALS: BP 145/71
--- NOTE | 2017-09-13 10:52 | NUR ---
ON UNIT TO ASSESS PT.
--- NOTE | 2017-09-13 12:40 | NUR ---
PT ALERT TO PERSON AND PLACE. PT MED COMPLIANT WITHOUT DIFFICULTY, MED EDUCATION PROVIDED. PT MOOD IS DEPRESSED. PT HOPELESS/HELPLESS AT TIMES. PT ENCOURAGED TO CONTINUE TO PERFORM ADLS THAT SHE IS CURRENTLY ABLE TO COMPLETE WITHOUT ASSISTANCE. FINGERFOODS PROVIDED AT MEALS, TO ACCOMMODATE NEEDS. PT CONSUMED 90% OF BREAKFAST AND 50% OF LUNCH. PT CALM, INTERACTING WITH STAFF AND PEERS AT TIMES. PT PREOCCUPIED AND MED SEEKING AT TIMES, THIS PT HEARD THIS NURSE AND ANOTHER NURSE DISCUSSING MEDICATIONS AND PT STATED 'I'LL TAKE SOME ATIVAN IF YOU HAVE IT." ADVISED PT THAT SHE IS NOT CURRENTLY PRESCRIBED ATIVAN AND WE CANNOT GIVE IT TO HER" PT STATED "WELL ILL TAKE SOME OF IT ANYWAY." MED EDUCATION PROVIDED, NO FURTHER ISSUES NOTED. PT UP TO WHEELCHAIR, WILL PROPEL SELF SHORT DISTANCES WITH MUCH ENCOURGAEMENT. PT CONTINENT OF BOWEL AND BLADDER. TREATMENT PLAN TARGETS #1 ALTERED THOUGHT PROCESS R/T INCREASED CONFUSION. PLAN IS TO PRESENT REALITY TO PT WITH EACH INTERACTION AND NEEDED, MONITOR PT BEHAVIORS ON Q15 MIN SAFETY CHECKS.
[2017-09-13 20:00] VITALS: BP 154/63
--- NOTE | 2017-09-13 20:53 | NUR ---
CLIENT CALLED OUT BEFORE SNACK WANTING STAFF TO GET HER OUT OF BED AND WHEEL HER TO DININGROOM. I INFORMED HER SHE IS CAPABLE OF DOING THIS ON HER OWN. WITH MUCH SUPPORT, CHEERING AND ENCOURAGEMENT CLIENT WAS ABLE TO GET HERSELF OUT OF BED AND TO DININGROOM. DURING MEDICATION PASS SHE ASKED ME TO HOLD HER CUP, AGAIN I INFORMED HER SHE IS ABLE TO DO IT. SHE THEN EXAGGERATED HER TREMORS SPILLING WATER ON HERSELF, I INFORMED HER I WATCHED HER EAT SNACK AND SHE WAS ABLE TO HOLD A CUP WITHOUT EXCESSIVE TREMORS. DURING OUT CONVERSATION I POINTED OUT TO HER THAT SHE IS CURRENTLY HOLDING THE CUP WITH ONLY MINIMAL TREMORS AND NO SPILLAGE. HER REPLY, "OH OK". WILL CONTINUE TO MONITOR
--- NOTE | 2017-09-13 22:25 | NUR ---
TYLENOL GIVEN FOR C/O RIGHT HIP PAIN 06/26. STATES I THINK IT IS FROM THE WHEELCHAIR. ENCOURAGED HER TO START REUSING HER WALKER TO DECREASE PAIN. STATES SHE WILL THINK ABOUT IT.
--- NOTE | 2017-09-13 23:55 | NUR ---
APPEARS TYLENOL EFFECTIVE. EYES CLOSED RESP EASY NON LABORED
--- NOTE | 2017-09-14 02:04 | NUR ---
24 HR chart check completed.
--- NOTE | 2017-09-14 05:59 | NUR ---
UP ONCE TO VOID. HAS TO BE ENCOURAGED WITH LOTS OF EMOTIONAL SUPPORT TO GET HER TO CARE FOR HERSELF. WILL CONTINUE TO ENCOURGE
[2017-09-14 07:54] VITALS: BP 145/66
--- NOTE | 2017-09-14 10:47 | NUR ---
ON UNIT TO ASSESS PT.
--- NOTE | 2017-09-14 15:12 | NUR ---
PT C/O LOWER BACK AND HIP PAIN. PT RATED PAIN 6/10. PT REPOSITIONED IN BED, REPOSITIONING INEFFECTIVE, PT MEDICATED WITH TYLENOL 650 MG PO PRN.
--- NOTE | 2017-09-14 15:28 | NUR ---
PT ALERT TO PERSON AND PLACE. PT MED COMPLIANT WITHOUT DIFFICULTY, MED EDUCATION PROVIDED. PT MOOD IS HOPELESS/HELPLESS AT TIMES. PT PREOCCUPIED WITH BEING UPSET WITH STAFF FOR MAKING HER COMPLETE ADLS THAT SHE IS CAPABLE OF DOING HERSELF, POSITIVE REASSURANCE AND ENCOURAGEMENT PROVIDED. PT GOAL DIRECTED TOWARD DISCHARGE STATING "I'M GOING TO [place] TO LIVE WITH MY DAUGHTER." NO HALLUCINATIONS OR DELUSIONS NOTED. PT DENIES ANY HOMICIDAL/SUICIDAL THOUGHTS. PT ABLE TO PROPEL SELF IN WHEELCHAIR DOWN BANG, STAND-BY ASSISSTANCE PROVIDED FOR TRANSFERS. PT CONTINENT OF BOWEL AND BLADDER. TREATMENT PLAN TARGETS #1- ALTERED THOUGHT PROCESS R/T INCREASED CONFUSION AEB VISUAL HALLUCINATIONS. PLAN IS TO ENCOURAGE PT TO VOICE ANY HALLUCINATIONS OR DELUSIONS, PRESENT REALITY TO PT WITH EACH INTERACTION AND NEEDED, MONITOR PT BEHAVIORS ON Q15 MIN SAFTEY CHECKS.
[2017-09-14 19:44] VITALS: BP 128/62
--- NOTE | 2017-09-14 21:00 | NUR ---
CONTINUES TO REFUSE TO ATTEMPT TO WALK WITH STAFF AND WALKER. EXPRESSIVE DESIRE TO GO TO A [facility] SO THEY CAN TAKE CARE OF HER. REVIEWED THAT BEING IN BED AND A WHEELCHAIR CONTINUOUSLY AND HAVING NOT INPUT TO CARE AND NEEDS THAT MAY BE DIFFERENT THAN FACILILTLIES CAN GET VERY DIFFICULTY TO LIVE WITH. ENCOURAGED HER TO TRY HARDER TO BE SELF SUFFICIENT AND PARTAKE MORE IN HER DESCIONS AND ADLS. SHE JUST STARED THROUGH ME AND DIDN'T ANSWER. WILL CONTINUE WITH REALITY CHECKS AND EMOTIONAL SUPPORT.
--- NOTE | 2017-09-14 22:07 | NUR ---
TYLENOL GIVEN FOR C/O BACK PAIN. REPOSITIONED
--- NOTE | 2017-09-15 00:19 | NUR ---
RESTING QUIET SINCE TYLENOL GIVEN. APPEARS TO BE EFFECTIVE
--- NOTE | 2017-09-15 02:20 | NUR ---
REPOSITIONED CLIENT. SHE ASKED HOW LONG THIS IS GOING TO HAPPEN. EXPLAINED THAT UNTIL SHE STARTS MOVING HERSELF WE HAVE TO CONTINUE TO TURN HER. SHE SMILED AND SAID OH GOOD SEE YOU SOON.
--- NOTE | 2017-09-15 05:41 | NUR ---
24 HR chart check completed.
--- NOTE | 2017-09-15 06:48 | NUR ---
REFUSES TO PARTICIPATE IN ANY ADL'S/. REFUSED TO TURN SELF ALL NIGHT. IS CURRENTLY IN WHEELCHAIR AND REFUSES TO MOVE HERSELF IN THE CHAIR. INSISTS SHE ISN'T STRONG ENOUGHT TO WHEEL SELF INTO BANG. CLIENT WAS DOING THIS YESTERDAY. ATTEMPTED TO PROVIDE POSITIVE REINFORCEMENT TO BUILD UP HER CONFIDENCE AND SHE TOLD ME TO STOP PATRONIZING HER. STATES SHE WANTS TO GO TO A ALF SO THEY CAN TAKE CARE OF HER. UNABLE TO REDIRECT.
[2017-09-15 07:57] VITALS: BP 140/83
[2017-09-15 08:00] LABS: BUN 22 mg/dl (7-24); CHLORIDE 103 mmol/L (98-107); CREATININE 0.85 mg/dL (0.55-1.02); POTASSIUM 4.7 mmol/L (3.5-5.1); SODIUM 138 mmol/L (136-145)
[2017-09-15 08:09] LABS: VALPROIC ACID (DEPAKENE) 52.7 ug/ml (50-100)
[2017-09-15 08:11] LABS: BASO % 0.6 % (0.0-1.0); EOS # 0.2 10*3/uL (0.0-0.4); EOS % 2.9 % (1.0-4.0); HEMATOCRIT 39.3 % (37.0-47.0); HEMOGLOBIN 12.9 g/dl (12.0-16.0); LYMPH # 1.8 10*3/uL (1.3-4.4); LYMPH % 28.2 % (27.0-41.0); MEAN CELL VOLUME 87.3 fl (81.0-99.0); MEAN CORPUSCULAR HGB 28.7 pg (27.0-31.0); MEAN CORPUSCULAR HGB CONC 32.8 g/dl (33.0-37.0); MEAN PLATELET VOLUME 11.3 fl (9.6-12.3); MONO # 0.6 10*3/uL (0.1-1.0); MONO % 8.9 % (3.0-9.0); NEUT # 3.7 10*3/uL (2.3-7.9); NEUT % 58.4 % (47.0-73.0); PLATELET COUNT AUTOMATED 155 10*3/uL (130-400); WHITE BLOOD COUNT 6.3 10*3/uL (4.8-10.8)
--- NOTE | 2017-09-15 08:15 | NUR ---
SW LOOKED UP FACILTITES ON [facility] INTERNET FOR PT IN [facility]. MOTHER JAIRO BURK HAS NOT MATH INTERVENTIONIST BEDS AVAILBLE. REFERRAL SENT TO [facility].
--- NOTE | 2017-09-15 08:30 | NUR ---
ZEINAB DEJESUS NOTIFIED OF CRITICAL LAB - AMMONIA 63. READ BACK RESULT. NNO RECIEVED AT THIS TIME.
--- NOTE | 2017-09-15 10:16 | NUR ---
PT IS ALERT AND ORIENTED TO PERSON AND PLACE. RESPIRATIONS EASY ON ROOM AIR. MOOD IS DEPRESSED WITH FLAT AFFECT. SPEECH IS SOFT AND SLOW BUT COHERENT, ABLE TO MAKE NEEDS KNOWN WITHOUT DIFFICULTY. PT DENIES SI/HI INTENT OR PLAN. PT DENIES HALLUCINATIONS, NO RESPONSE TO INTERNAL STIMULI NOTED. NO PARANOIA/DELUSIONS NOTED. MEDICATION COMPLIANT WITHOUT DIFFICULTY. PT UTILIZES WHEELCHAIR ON UNIT FOR MOBILITY AND SAFETY, PT IS ASSIST OF 1 STAFF FOR COMPLETION OF ADLS. CONTINENT OF BOWEL AND BLADDER, DISPLAYS GOOD APPETITE WITH ADEQUATE FLUID INTAKE THIS AM, FED SELF 100% OF BREAKFAST. TREMORS NOTED TO BUE, TREMORS NOTED TO BE EXAGGERATED WHEN STAFF IS NEARBY. PT'S TREATMENT PLAN TARGETS (1) ALTERED THOUGHT PROCESS R/T INCREASED CONFUSION AEB VISUAL HALLUCINATIONS (SEEING GHOSTS), AND THREATENING TO STAB SPOUSE WITH A KNIFE AND (2) RISK FOR FALLS. STAFF WILL CONTINUE TO ENCOURAGE PT TO VERBALIZE HALLUCINATIONS THEY OCCUR, ASSESS PT DAILY FOR SI/HI IDEATIONS AND TRIGGERS TO SI, ASSIST PT IN IDENTIFYING COPING SKILLS, ENCOURAGE MEDICATION COMPLIANCE, ENCOURAGE PT TO PARTICIPATE IN GROUPS AND ACTIVITIES AND MAINTAIN FALL RISK PRECAUTIONS PER POLICY. Q15 MIN SAFETY CHECKS MAINTAINED, REFER TO [facility] FLOWSHEET FOR SPECIFIC MONITORING.
--- NOTE | 2017-09-15 12:38 | NUR ---
PHYSICAL THERAPY Joceleonides was seen this AM 1:1 for her physical therapy session and talked into her treatment. Pt wheeled out into the [facility] for her treatment. Transfer with much verbal cueing up and to lean forward then up stand with MOD A X 1. Followed by standing balance at the window and singel leg stand MOD CHEF ASSISTANT X 1, then sit to rest. Then another standing balance, followed by gait backwards X 2, MOD A X 1, sitting rest. Then gait with Pt pushing her wheelchair MOD A X 1, 90' X 2, one sitting rest. End with act Ex to bilateral LE of marching, LAQ's, and ankle pumps with verbal cueing for each Ex X 15 reps each X 2. Then Pt taken back to the day room for her breakfast. MARIA DEL CARMEN LOPEZ TRANSPORTATION MANAGER.
--- NOTE | 2017-09-15 13:03 | NUR ---
Exercise/Letter To Me Patient was in attendence as well as participated in group this morning.Patient showed no signs of confusion or voiced no visual hallucinations throughout group.
--- NOTE | 2017-09-15 14:00 | NUR ---
PT GIVEN PRN TYLENOL 650MG PO AT 1359 PER REQUEST FOR C/O BACK PAIN RATED LEVEL 9/10. WILL MONITOR FOR EFFECTIVENESS.
--- NOTE | 2017-09-15 15:00 | NUR ---
TYLENOL EFFECTIVE. NO FURTHER C/O PAIN.
--- NOTE | 2017-09-15 15:40 | NUR ---
Social RUIZ Patient was in attendence for approxamatley 15-20 minutes of group as well as participated. Patient then apologized and stated she want to leave and go to her room. While patient was in attendence patient showed no signs of confusion and voiced no visual Hallucinations
--- NOTE | 2017-09-15 15:55 | NUR ---
TREATMETN TEAM WA HELD WITH THE FOLLOWING: DR. CAREY, RNs, SW, ATs. AMMONIA LEVEL ELEVATED. REFERRALS MADE TO [facility]. BREANNA BURK NO BEDS
--- NOTE | 2017-09-15 18:20 | NUR ---
SHIFT CHART CHECK COMPLETED.
[2017-09-15 20:27] VITALS: BP 142/72
--- NOTE | 2017-09-15 20:59 | NUR ---
TYLENOL GIVEN FOR C/O BACK PAIN 06/26
--- NOTE | 2017-09-15 23:42 | NUR ---
APPEARS TYLENOL EFFECTIVE FOR BACK PAIN.
--- NOTE | 2017-09-16 01:04 | NUR ---
WALKED TO BATHROOM WITHOUT ASSISTANCE BUT THEN SAID SHE WAS UNABLE TO STAND OR WALK AND WANTED STAFF TO LIFT HER. THIS IS THE 3RD TIME IN 30 MINUTES SHE HAS ACTIVIATED THE ALARM AND HER ROOMMATE IS GETTING NO SLEEP. MOVED CLIENT TO QUIET ROOM IN MIN CHAIR. WILL MONITOR.
--- NOTE | 2017-09-16 02:47 | NUR ---
INCONTNENT OF LARGE AMOUNT URINE. CLEANED UP AND NEW CLOTHING APPLIED. TOILETING TRAINING STARTED.
--- NOTE | 2017-09-16 04:38 | NUR ---
REMAINS AWAKE. WAS TAKEN TO BATHROOM OFF TOILETING SCHEDUAL DUE TO CLIENT SAYING SHE COULDN'T HOLD IT ANY LONGER. SHE DID NOT VOID AT ALL. RETURNED TO ROOM.
--- NOTE | 2017-09-16 04:39 | NUR ---
24 HR chart check completed.
--- NOTE | 2017-09-16 05:36 | NUR ---
SLEPT POOR ALL NIGHT
--- NOTE | 2017-09-16 06:17 | NUR ---
URINE COLLECTED TO R/O UTI
[2017-09-16 07:12] LABS: BILIRUBIN NEGATIVE (NEGATIVE); BLOOD NEGATIVE (NEGATIVE); CLARITY SL CLOUDY (CLEAR); COLOR YELLOW (YELLOW); GLUCOSE NEGATIVE (NEGATIVE); KETONE TRACE (NEGATIVE); LEUKO ESTERASE TRACE (NEGATIVE); NITRITE NEGATIVE (NEGATIVE); UROBILINOGEN 0.2 E.U./dl (0.2-1.0)
[2017-09-16 07:20] LABS: BACTERIA TRACE
[2017-09-16 07:21] LABS: RBC 0-2 rbc/hpf (0-2)
[2017-09-16 08:31] VITALS: BP 133/67
--- NOTE | 2017-09-16 09:07 | NUR ---
TREATMENT TEAM WAS HELD WITH THE FOLLOWING: DR. CAREY, RESIDENT, MEDICAL STUDENT, RNs, AT, SWs. DR. CAREY FEELS THAT SOMETHING IS GOING ON WITH PT MEDICALLY. TREMORS APPEAR TO BE INCREASING AT TIMES. REFERRALS WERE MADE TO FACILITY IN [facility]. SOME NO T HAVE OPENINGS OTHERT DID NOT CALL BACK YET.
--- NOTE | 2017-09-16 09:48 | NUR ---
PHYSICAL THERAPY Carine seen this AM X 2, up in ther day room and when she was back in her room and not wanting any therapy just going to stay in her chair today. MARIA DEL CARMEN LOPEZ MACHINE GUN MECHANIC.
--- NOTE | 2017-09-16 12:59 | NUR ---
PHYSICAL THERAPY Back this PM to see Carine for her therapy gait. Pt was up in the day room, wheeled out into the [facility]. Transfer sit/stand and up on the third try with MOD A X 1, standing balance with wheeled walker MOD A X 1. Gait with W/W total 45' X 1, MOD ELECTRICIAN UNDERGROUND X 1, and verbal cueing for gait, walker safety and her turns then sit to rest. Followed by another gait W/W 285' X 1, cueing for safety and her turns. Carine is not safe up ambulating by herself. Pt back in her wheelchair, body alarm on and taken into the day room. MARIA DEL CARMEN LOPEZ MARKET DEVELOPMENT SPECIALIST.
--- NOTE | 2017-09-16 13:17 | NUR ---
Exercise/Riddles & Games Patient did attend group today as well as participated. Patient showed no signs of confusion or voiced no visual hallucinations throughout group
--- NOTE | 2017-09-16 17:21 | NUR ---
PILLO FAXED REFERRAL TO [facility] AFTER SPEAKING WITH DTR.
--- NOTE | 2017-09-16 18:10 | NUR ---
Carine is compliant with taking her prescribed medications. On 1:1 interaction she is limited in verbalization, but responses to questions asked by staff were appropriate. Some hesitancy is also noted in her responses as well. Intermittent coarse hand tremors are noted @ times. Dr. Martinez in to see her today with orders received. Carine states plans to "go to a long term," and briefly talked with staff regarding this. She reports that she is "looking forward to it because I like [place] but I am afraid too." Support was provided. Limited in interactions with peers, but is noted to spend some time up in the dining room. Appetite is fair. Refer to [facility] flowsheet for specific monitoring.
[2017-09-16 20:00] VITALS: BP 123/59
--- NOTE | 2017-09-17 03:03 | NUR ---
24 HOUR CHART CHECK COMPLETED.
--- NOTE | 2017-09-17 05:34 | NUR ---
PATIENT OBSERVED ON Q 15 MIN CHECKS TO HAVE SLEPT >7 HOURS UNINTERRUPTED. DURING 1:1 PATIENT CONITNUED TO BE LIMITED IN VERBALIZATION, BUT RESPONSES TO QUESTIONS ASKED BY STAFF WERE APPROPRIATE. DENIES SI/HI AND HALLUCINATIONS. NO RESPONDING TO INTERNAL STIMULI OR DELUSIONS NOTED THIS SHIFT. REFUSED HS DOSE OF LACTOLOSE AFTER ENCOURAGEMENT AND EDUCATION, PUSHED MEDICATION AWAY WHEN THIS NURSE ATTEMPTED TO GIVE IT TO PATIENT. COMPLIANT WITH REMAINING HS MEDICATIONS WITHOUT DIFFICULTY. NO PHYSICAL COMPLAINTS VOICED. PATIENT CURRENTLY IN BED WITH EYES CLOSED. RESPIRATIONS EASY AND REGULAR, NO SIGNS OR SYMPTOMS OF DISTRESS NOTED. REFER TO [facility] FLOWSHEET FOR SPECIFIC MONITORING.
[2017-09-17 07:48] VITALS: BP 142/67
--- NOTE | 2017-09-17 08:32 | NUR ---
09/16/17 Afternoon Reminiscing/Puzzles Patient was in attendence as well as participated. Throughout group patient showed no signs of confusion and voiced no visual hallucinations
--- NOTE | 2017-09-17 09:25 | NUR ---
TREATMETN TEAM WAS HELD WITH THE FOLLOWING: DR. CAREY, RNs, AT, SW. SW ASKED DR ROUSE TO CALL FAMIL. DR. CAREY WANTS RN TO CALL [facility]ONS BACK.
--- NOTE | 2017-09-17 10:25 | NUR ---
PHYSICAL THERAPY Carine was seen this AM 1:1 for her therapy gait. Pt was up in the day room and just not herself today but said she would try and talked into her gait. Wheeled out into the [facility] in Pt's wheelchair. Sit/stand and standing balance on wheeled walker MOD A X 1, with cueing just to stand. Followed by gait 75' X 2, MOD FOREST AND CONSERVATION WORKER X 1, with W/W and one sitting rest with this and cueing for gait, walker, turn safety. Carine wanting to quit at this time. Pt wheeled back into the day room. MARIA DEL CARMEN LOPEZ BOX FOLDING MACHINE OPERATOR.
--- NOTE | 2017-09-17 10:31 | NUR ---
ON UNIT TO ASSESS PT.
--- NOTE | 2017-09-17 11:17 | NUR ---
Exercises and remenissing group Patient present in activity room however slept through group. Patient at times would voice not feeling well and nursing is aware.
--- NOTE | 2017-09-17 14:59 | NUR ---
Meaningful Me Patient attended group with limited participation. Patient displays confusion throughout group with difficulty answering questions. Patient attempts to speak for peers in group without understanding the questions. Patient easily redirected.
--- NOTE | 2017-09-17 15:20 | NUR ---
Occupational Therapy evaluation attempted this am and pm with patient falling asleep in w/c This pm she feel asleep during the OT interview. OTR will attempt at a later time. Adenike Herrera OTR/l
--- NOTE | 2017-09-17 17:59 | NUR ---
SW RECEIVED VM FROM [facility] INFORMING THAT FACILITY DOES NOT ACCPET PT'S INSURANCE NOR WOULD ACCPET HER DUE TO HER BEHAVIORS.
--- NOTE | 2017-09-17 18:17 | NUR ---
PT ALERT TO PERSON AND PLACE. PT MED COMPLIANT WITHOUT DIFFICULTY, MED EDUCATION PROVIDED. PT MOOD IS STABLE. PT CALM, INTERACTING WITH STAFF AND PEERS. PT GOAL DIRECTED TOWARDS DISCHARGE, VOICES EXCITEMENT ABOUT GOING TO A DETENTION NEAR HER DAUGHTER IN [place]. PT DENIES ANY HOMICIDAL/SUICIDAL THOUGHTS. NO HALLUCINATIONS OR DELUSIONS NOTED. PT WILL PROPEL SELF IN WHEELCHAIR WITH MUCH ENCOURAGEMENT. PT CONTINENT OF BOWEL AND BLADDER, EPISODES OF INCONTINENCE NOTED, CARE PROVIDED NEEDED. PT TREATMENT PLAN TARGETS ALTETRED THOUGHT PROCESS R/T INCREASED CONFUSION AEB HALLUCINATIONS. PLAN IS TO ENCOURAGE PT TO VOICE ANY HALLUCIANTIONS OR DELUSIONS, PRESENT REALITY TO PT WITH EACH INTERACTION AND NEEDED, MONITOR PT BEHAVIORS ON Q15 MIN SAFETY CHECKS.
[2017-09-17 20:00] VITALS: BP 135/64
--- NOTE | 2017-09-18 02:37 | NUR ---
24 HOUR CHART CHECK COMPLETED.
--- NOTE | 2017-09-18 06:12 | NUR ---
PATIENT OBSERVED ON Q 15 MIN CHECKS TO HAVE SLEPT >6 HOURS UNINTERRUPTED. DURING 1:1 PATIENT CONTINUED TO BE LIMITED IN VERBALIZATION, BUT RESPONSES TO QUESTIONS ASKED BE STAFF WERE APPROPRIATE. DENIES SUICIDAL AND HOMICIDAL IDEATIONS AND HALLUCINATIONS. NO NOTED RESPONDING TO INTERNAL STIMULI. PATIENT SUSPICIOUS OF STAFF DURING HS MEDICATION PASS STATING "I AINT TAKING ANY OF THESE MEDICATIONS, I DONT BELIEVE YOU WHEN YOU SAY I TAKE THESE, ILL SEE WHAT HAS TO SAY IN THE MORNING". REALITY PRESENTED BY STAFF AND PROVIDED WITH ADDITIONAL MEDICATION EDUCATION. PATIENT CONTINUED TO REFUSE DOSE OF ASPIRIN AFTER EDUCATION SAYING "I DONT CARE WHAT YOU SAY, I ONLY TAKE IT ONCE A DAY NOT TWICE". PATIENT COMPLIANT WITH REMAINING HS MEDICATIONS AFTER VERBALIZED UNDERSTANDING. INTERMITTENT COARSE HAND TREMORS ARE NOTED AT TIMES, SEEM TO WORSEN WHEN APPROACHED BY STAFF. NO PHYSICAL COMPLAINTS VOICED. PATIENT CURRENTLY MOBILIZING UNIT IN WHEELCHAIR. RESPIRATIONS EASY AND REGULAR, NO SIGNS OR SYMPTOMS OF DISTRESS NOTED. REFER TO [facility] FLOWSHEET FOR SPEIFIC MONITORING.
[2017-09-18 07:56] VITALS: BP 133/62
--- NOTE | 2017-09-18 08:26 | NUR ---
SWS sent referrals out to [facility], [facility], Pending sale to [facility], and [facility].
--- NOTE | 2017-09-18 08:32 | NUR ---
TREATMENT TEAM WAS [facility] FOLLOWING: DR. CAREY, MEDICAL STUDENT, VNO, RNs, SWs, AT. STILL SOMATIC. [facility] DECLINE ADMISSION. OTHER REFERRALS SENT TO [facility] FURTHER OUT.
--- NOTE | 2017-09-18 09:44 | NUR ---
PHYSICAL THERAPY Carine was seen this AM X 2, and would not answer if she wanted to gait, and have her physical therapy treatment. Pt would just shake her head no, but would not respond verbally, jumiya no. MARIA DEL CARMEN LOPEZ PTA.
--- NOTE | 2017-09-18 12:05 | NUR ---
[facility] called back, they do not have a bed avaialable.
--- NOTE | 2017-09-18 12:36 | NUR ---
PT IS ALERT AND ORIENTED TO PERSON, PLACE, APPROXIMATE TIME. MEMORY APPEARS INTACT. RESPIRATIONS EASY ON ROOM AIR. MOOD IS DEPRESSED, ANXIOUS. SPEECH IS SOFT AND SLOW BUT COHERENT, ABLE TO MAKE NEEDS KNOWN WITHOUT DIFFICULTY. DURING MORNING MED PASS, PT SITTING IN ROOM WITH NECK AND HEAD TILTED BACK, PT STATES "I CAN'T LIFT MY HEAD" PT ENCOURAGED TO LIFT HEAD TO PROPER ALIGNMENT BY THIS NURSE, PT STATES "I CAN'T", HOWEVER PT WAS ABLE TO LIFT OWN HEAD AND SAT UP STRAIGHT INDEPENDENTLY, PT STATES "YOU ARE HEARTLESS. I CAN'T DO THINGS FOR MYSELF. I NEED YOU TO TAKE CARE OF ME." PT EDUCATED ON THE IMPORTANCE OF MAINTAINING MUCH INDEPENDENCE POSSIBLE. PT STATES "I'M NOT TAKING ANY OF THOSE MEDICATIONS YOU GIVE ME, I THINK YOU ARE HERE TO POSION ME." PT EDUCATED ON EACH MEDICATION AND IT'S INTENDED USE, PT AGREED TO TAKE MEDICATIONS AFTER EDUCATION WAS PROVIDED. NO DISTRESS NOTED. Q15 MIN SAFETY CHECKS MAINTAINED, REFER TO [facility] FLOWSHEET FOR SPECIFIC MONITORING.
--- NOTE | 2017-09-18 15:50 | NUR ---
Occupational Therapy evaluation completed this date on 3 with full eval to follow. Precautions include fall risk, tremors, 3N, tearful, moderate complexity level 81451. Recommend OT per POC and SNF upon d/c to enable return to PLOF. Thank you for this referral. Adenike Herrera OTR/L
--- NOTE | 2017-09-18 18:18 | NUR ---
SHIFT CHART CHECK COMPLETED.
[2017-09-18 19:47] VITALS: BP 130/58
--- NOTE | 2017-09-19 05:26 | NUR ---
24 HR chart check completed.
--- NOTE | 2017-09-19 05:37 | NUR ---
DURING MED PASS PT REFUSED LACTULOSE AND ASPIRIN. PT WAS OBSESSIVE WITH KNOWING WHAT SHE WAS SUPPOSE TO BE DOING. PT WAS CONFUSED. SITTING ON SIDE OF BED AND STATING SHE WASNT SURE WHERE OR WHAT SHE SHOULD BE DOING. EXPLAINED THE PROCEDURES OF THE UNIT TO THE PT TWO TIMES.RESPIRATIONS EASY AND NON LABORED. ALERT TO PERSON WITH CONFUSION NOTED. NO HALLUCINATIONS OR DELUSIONS NOTED. DENIES SI/HI. PT SLEPT APPROXIMATELY 10 HOURS THIS SHIFT. NO S/S OF DISTRESS NOTED. NO C/O PAIN. Q15 MINUTE SAFETY CHECKS MAINTAINED. FALL PRECAUTIONS MAINTAINED.
--- NOTE | 2017-09-19 07:32 | NUR ---
Morning 09/18/17 Conversation and Goals Patient did not attend group. Patient refused,wanting to stay in bed and sleep
[2017-09-19 08:00] VITALS: BP 132/53
--- NOTE | 2017-09-19 08:26 | NUR ---
PHYSICAL THERAPY Mrs Davenport seen this AM 1:1 and was up in the day room. Wheeled Pt out into the [facility]. Transfer sit/stand MIN A X 1, with cueing for safety. Then gait with wheeled walker 80' X 1, sitting rest. Then gait with MOD BOX LINING MACHINE OPERATOR X 1, 75' X 1, cueing for gait balance and turns. Working in today gait balance with gait backwards, right and left side stepping with MOD BOX LINING MACHINE OPERATOR X 1, with cueing for each Pt back up in her wheelchair and went over her act Ex to bilateral LE of marching, LAQ's, ankle pumps with cueing for each. MARIA DEL CARMEN LOPEZ HEAVY DUTY MECHANIC.
[2017-09-19] MEDS ORDERED: Mysoline50 MG PO (09:21)
[2017-09-19] MEDS ORDERED: LACTULOSE20 GM/30 M PO (09:21)
[2017-09-19] MEDS ORDERED: MIRTAZAPINE15 M2 PO (09:21)
[2017-09-19] MEDS ORDERED: LATU40TA PO (09:21)
--- NOTE | 2017-09-19 10:00 | NUR ---
TREATMENT TEAM WAS HELD WITH THE FOLLOWING: DR. CAREY, MEDICAL STUDENT, RNs, SW, AT. PT WAS ACCEPTED AT [facility]. SWS FAXED INFORMATION FOR PRECERT.
--- NOTE | 2017-09-19 10:42 | NUR ---
PILLO CALLED NICKY TO CHECK WITH [facility] TO MAKE SURE FAX WAS RECEIVED FOR PRECERT. ASIA NOT IN UNTIL LATER TODAY. TABLE TOP TILE SETTER CHECKING WITH WIL CALL BACK.
--- NOTE | 2017-09-19 12:22 | NUR ---
PATIENT SEEN 1:1 THIS DATE 25 MINUTES TOTAL.IDENTIFIED PATIENT BY NAME AND DATE OF . PATIENT SEEN IN THE AM WITH PATIENT LETHARGIC AND C/O FATIGUE CLOSING EYES DURING SESSION WITH MINIMAL PARTIPATION INCLUDED AROM BUE X15 REPS SHOULDER FLEXION/EXT IN QUIET ROOM SEATED IN W/C. PATIENT WHEELED VIA W/C TO DAY ROOM PER REQUEST TO REST . PATIENT SEEN SECOND TIME IN AM AFTER RESTING SHORT AMOUNT OF TIME WITH INCREASE AROUSAL AND COMPLETING BUE AROM 5 EXERCISES X 15 REPS WITH MOD VERBAL/VISUAL CUES TECHNIQUE AND FORM. PATIENT SEEN AGAIN DURING LUNCH TIME WITH OCCASIONAL MIN A REQUIRED AFTER DELGADO AND VERBAL CUES PROPER HOLDING OF CUP. GARRY LOVE/Madhav
--- NOTE | 2017-09-19 13:00 | NUR ---
Exercise/Reminiscing/Funny Things Patient did attend group this morning with almost no participation. Patients goal was to work on sitting up straight and keeping her head up which she did not attempt to do during group unless she was reminded to do so. Patient had to be prompted throughout group to participate.
--- NOTE | 2017-09-19 14:32 | NUR ---
PT IS ALERT AND ORIENTED WITH SOME MEMORY GAPS. HAS BEEN FEEDING SELF INDEPENDENTLY. REQUIRES PROMPTING FROM STAFF FOR ALL OTHER ADLS AND HYGIENE CARE. NO HALLUCINATIONS OR DELUSIONS NOTED. DENIES ANY SI/HI, PLAN, OR INTENT. MEDICATION COMPLIANT WITHOUT DIFFICULTY. FALL PRECAUTIONS AND Q15 MIN OBSERVATION CHECKS MAINTAINED. SEE [facility] FLOWSHEET FOR SPECIFIC MONITORING.
--- NOTE | 2017-09-19 15:05 | NUR ---
SW RECEIVED CALL FROM ASIA [facility] THAT PRE-CERT WAS RECEIVED FOR PT. [facility] WILL SET UP DISCHARGE FOR WEDNESDAY SEPTEMBER 20, 2017. DTR TO TRANSPORT.
--- NOTE | 2017-09-19 15:28 | NUR ---
SW CALLED DTR TO ARRANGE TRANSPORATION FOR PT TO BE TRANSPORATED TO [place] ON FRIDAY DUE TO PRE-CERT APPROVED. DTR DID NOT AGREE TO FACILITY AN HOUR FROM [place]. DTR REFUSES PT TO GO TO [place]. PILLO SENT SWS AND DIRECTOR A TEXT MESSAGE REGARDING THIS.
--- NOTE | 2017-09-19 15:31 | NUR ---
PATIENT CONFUSED, ASKING STAFF WHERE THE ELEVATOR IS SO SHE CAN GET TO HER APARTMENT. RE-ORIENTED WITH MODERATE EFFECT.
--- NOTE | 2017-09-19 15:37 | NUR ---
JOSEPH Patient was in attendence for group with limited participation. Patient was sitting in her chair leaning backward with her head back. Patient was constantly reminded throughout group her goal was to sit up straighter and keep her head up. At times patient would fall asleep. During group patient showed no signs of confusion and reported no hallucinations
--- NOTE | 2017-09-19 17:25 | NUR ---
SW INFORMED PT THAT HSE WAS ACCEPTED AT [facility]. PT INQUIRED HOW FAR THAT WAS FROM [place]. SW STATED ABOUT 2HOURS. PT WHO STATES THAT SHE DID NOT AGREE TO GO TO A FACILITY 2 HOURS FORM [place]. PT WANTS A FACILITY IN [place] SO DTR CAN VISIT HER DAILY.
--- NOTE | 2017-09-19 17:28 | NUR ---
PILLO SPOKE WITH ASIA FROM [facility] TO INFORM HER THAT [place] [facility] [place] UPSET DUE TO [place] FACILITY IS FROM [place]. ASIA STATED THAT SHE WOULD ASSIST DTR IN TRANSFERRING PT TO A [place] FACILITY. [facility]IN WILL NOT ACCEPT PT UNLESS SHE AGREES TO COME TO FACILITY DUE TO RISDENT RIGHTS.
--- NOTE | 2017-09-19 17:30 | NUR ---
DIRECTOR STATED IT IS TOO LATE TO SEND PT TODAY AND TO WORK ON FACILITY CLOSER TO [place] AND NOT TO LET PRE-CERT .
--- NOTE | 2017-09-19 17:32 | NUR ---
PILLO SPOKE WITH ASIA. ASIA STATED THAT FACILITY WILL ACCEPT PT ON FRIDAY IF SHE AGREES TO COME. PRE-CERT CAN BE UPDATED QUCIKLY DUE TO BEING A MEDICIAD PRODUCT.
--- NOTE | 2017-09-19 17:34 | NUR ---
SW NOTIFIED DTR THAT PT DAVI REMAIN AT FACILITY UNTIL FRIDAY THEN NEEDS TO BE DISCHARGED. SW GAVE DTR E-MAIL ADDRESS TO SEND NAMES OF ADDITIONAL FACITILITES TO AND SW WILL SEND OUT REFERRALS Friday. DTR WILL PROVIDE TRANSPORTATION.
--- NOTE | 2017-09-19 17:36 | NUR ---
BRIANNA FROM [facility] DECLINED PT. FACILITY NOT ABLE TO MEET HER NEEDS.
[2017-09-19 20:41] VITALS: BP 116/56
--- NOTE | 2017-09-19 21:42 | NUR ---
PT C/O BACK PAIN. PRN TYLENOL GIVEN AT THIS TIME. WILL MONITOR PT FOR EFFECTIVENESS OF MEDICATION.
--- NOTE | 2017-09-19 22:42 | NUR ---
PRN TYLENOL EFFECTIVE. PT RESTING QUIETLY AT THIS TIME. WILL CONTINUE TO MONITOR PT FOR EFFECTIVENSS OF MEDICATION.
--- NOTE | 2017-09-20 03:10 | NUR ---
24 HR chart check completed.
--- NOTE | 2017-09-20 05:18 | NUR ---
PT SLEPT APPROXIMATELY 5 HOURS THIS SHIFT. NO S/S OF DISTRESS NOTED. NO C/O PAIN. MED COMPLIANT EXCEPT FOR LACTULOSE. MEDICATION EDUCATION PROVIDED FOR PM MEDICATIONS. PT STATED SHE HAS BEEN HAVING A LOT OF BOWEL MOVEMENTS. DURING MED PASS PT WANTED US TO "DO SOMETHING" WITH A PT THAT WANDERS THROUGH THE BANG. WHEN EXPLAINED TO PT THE OTHER PT HAS A RIGHT TO WALK THIS PT STATED"SOMETHING HAS TO BE DONE. CANT YOU PUT HIM IN A CHAIR OR TIE HIM TO THE BED?" EXPLAINED TO PT WE CAN NOT DO THAT HERE AT THIS FACILITY AND THIS PT STATED SHE WAS GOING TO TALK TO THE SUPERVISORS TODAY. Q15 MINUTE SAFETY CHECKS MAINTAINED. FALL PRECAUTIONS MAINTAINED.
--- NOTE | 2017-09-20 08:30 | NUR ---
THIS NURSE WAS TALKING TO PATIENT- PT STATED SHE WANTED TO BE DISCHARGED TODAY AND DIDN'T CARE WHAT FACILITY.
[2017-09-20 08:34] VITALS: BP 114/52
--- NOTE | 2017-09-20 10:21 | NUR ---
THIS NURSE AND WILLIE TALKED TO PATIENT AGAIN AND PT NOW SAID SHE WANTS TO STAY TILL FRIDAY AND GO TO A FACILITY CLOSER TO HER DAUGHTER IN [place] .
--- NOTE | 2017-09-20 10:24 | NUR ---
PT STATED SHE WANTS TO MAKE ARRANGEMENTS FOR HER TO VISIT;
--- NOTE | 2017-09-20 11:20 | NUR ---
daughter called to get an update: stated her mother is confused, and no way shape or form to make decisons on her own.
--- NOTE | 2017-09-20 11:25 | NUR ---
daughter said that the foster care social worker has known that the patient was suppoed to be transfereed to [place], daughter said she gave foster care social worker names of facilities in [facility] to check . daughter stated she'd rather send her back to [place] than [place].
--- NOTE | 2017-09-20 11:33 | NUR ---
Goals, remenissing and would you rahter Patient attended group with limited participation. Patient asleep throughout group only waking up when directly called upon. Patient states " cant you ask anyone else questions. Youre asking me to many." Encouraged patient to stay awake and actively participate with little success. Patient states "I think Im dying. Im so cold and just keep getting colder." Patient provided with emotional support and facts of being safe and not dying. That the temperture is cold outside and is cold throughout the building. Blankets was provided to the patient.
--- NOTE | 2017-09-20 17:01 | NUR ---
ALERT TO PERSON AND PLACE AT TIMES, ST/LT MEMORY GAPS, HOPELESS/HELPLESS, CONFUSED, GOAL DIRECTED, DENIES SI/HI, DENIES ALL PSYCHOSIS, IN A WHEELCHAIR ACTS HELPLESS, WITHDRAWN, GOOD APPETITE, CONTINENT,
[2017-09-20 20:00] VITALS: BP 130/62
--- NOTE | 2017-09-21 05:44 | NUR ---
24 HR chart check completed.
--- NOTE | 2017-09-21 07:03 | NUR ---
PT ISOLATIVE TO ROOM, MED COMPLIANT WITH EXCEPTION OF LACTULOSE. PT CONITNUES TO BE HOPELESS, HELPLESS REFUSING TO CARE FOR SELF AT TIMES. 1-1 PROVIDED AND MED EDUCATION REGARDING LACTULOSE AND METHOD OF ACTION. YELLOW SOCKS AND SINAGE, Q 15 MIN CHECKS FOR SAFETY TO PREVENT FALLS. CONTINUE POC UNITL D/C
[2017-09-21 07:41] VITALS: BP 125/61
--- NOTE | 2017-09-21 09:36 | NUR ---
THE DAUGHTER CALLED FOR AN UPDATE: WANTS PASSED ALONG SHE WANTS TO TALK TO THE DR AND TO DR EULA LEONG HER MOTHERS PROGRESS AND COMPETECY EVAL. SHE SAID HER MOTHER IS NO WAY SHAPE OR FORM ABLE TO LEAVE AND CARE FOR HERSELF. RIAZLLY IS LEGALLY BLIND AND HAD A STROKE AND CANNOT CARE FOR HER MOTHER ANYMORE. THAT IF DISCHARGE IS DONE TOMORROE THAT IT IS AN UNSAFE DISCHARGE. THE DAUGHTER REINTERATED SHE WANTS HER MOTHER MOVED TO [facility] IN A FACILITY SO SHE CAN HELP OVERSEE HER MOTHERS CARE
--- NOTE | 2017-09-21 14:28 | NUR ---
PT C/O OF PAIN IN HER BUTTOCKS. ASSESSEED PATIENT THERE IS NO BREAKDOWN, PT AMBULATED WITH STANDY ASST WITH A WAKER UP AND DOWNT THE BANG 2 TIMES.
--- NOTE | 2017-09-21 14:31 | NUR ---
ALERT TO PERSON, PLACE AT, TIME, HAS GAPS OF CONFUSION, MAKES HER NEEDS KNOWN, DENIES SI/HI, DENIES ALL PSYCHOSIS, ADMISTS TO BEING FORGETFUL, MED COMPLIANT, LESS SOMATIC, STILL HAS TIMES OF ACTING HOPELESS AND HELPLESS, NEEDS REDIRECTION,
--- NOTE | 2017-09-21 19:14 | NUR ---
SW RECEIVED TEAXT FROM DTVernon MACIAS REQUESTING REFERALS BE MADE TO [phone]; [facility] [phone]; [facility] [phone]; [facility] [phone]; [facility] [phone]; [facility] [phone].
--- NOTE | 2017-09-21 19:53 | NUR ---
24 HR chart check completed.
--- NOTE | 2017-09-21 20:06 | NUR ---
SW [facility]ED [facility]ALS [facility], [facility], [facility], AND [facility]. SW ALSO FAXED TO [facility]IA TERESA PER PT'S REQUEST.
[2017-09-21 20:16] VITALS: BP 121/58
--- NOTE | 2017-09-21 22:16 | NUR ---
PT A&O TO PERSON AND AT TIMES PLACE. FALL PRECAUTION MAINTAINED. PT IS HOPELESS AND HELPLESS. PT IS CONFUSED AND HAS ORGANIZED THOUGHTS. NO HALLUCINATIONS OR DELUSIONS NOTED. PT IS CALM, WITHDRAWN, INTERACTIVE WITH STAFF, DEMANDING AT TIMES, AND RESTLESS AT TIMES. MEDICATION COMPLIANT WITHOUT DIFFICULTY. PT REFUSED LACTULOSE STATING "IT MAKES ME GO TO THE BATHROOM ALOT" Q15 MINUTE CHECKS MAINTAINED. RESPIRATIONS EASY AND NON LABORED. NO S/S OF DISTRESS NOTED. NO C/O PAIN. SEE [facility] FLOWSHEET FOR SPECIFIC MONITORING.
--- NOTE | 2017-09-22 06:39 | NUR ---
PT SLEPT APPROXIMATELY 8 HOURS THIS SHIFT. NO S/S OF DISTRESS NOTED. NO C/O PAIN.
[2017-09-22 08:15] VITALS: BP 139/74
--- NOTE | 2017-09-22 08:20 | NUR ---
TREATMENT TEAM WAS HELD WITH THE FOLLOWING: DR. CAREY, AT, RNs, SWs. PT TO BE DISCHARGED TODAY. SW EXPLAINED WHAT REFERRALS WERE SENT TO [place] AND [facility]. PT'S ALSO STATED THAT THEY BOTH HAVE IN HOME SERVICES SO PT COULD GO HOME. DR. CAREY DOES NOT FEEL PT WOULD BE SAFE AT HOME.
--- NOTE | 2017-09-22 08:33 | NUR ---
DR. VALLES NOTIFIED OF PT PENDING DISCHARGE FOR EARLY THIS AFTERNOON AND MED REC NEEDING COMPLETED.
--- NOTE | 2017-09-22 09:03 | NUR ---
PHYSICAL THERAPY Carine seen this AM and having a little betted day then last Friday. Pt was up in the day room. Transfer sit/stand and standing balance with wheeled walker MIN A X 1. Then gait with W/W 90' X 2, MIN A X 1, verbal cueing for gait, walker and turn safety with one sitting rest. End with going over act Ex to bilateral LE in sitting of LAQ's, marching, ankle pumps with cueing for each Ex. Pt back in her chair at the table for her breakfast. MARIA DEL CARMEN VELAZQUEZ LONGWALL FOREMAN.
--- NOTE | 2017-09-22 09:17 | NUR ---
SW RECEIVED A CALL FROM [facility] DECLINING THE REFERRAL.
--- NOTE | 2017-09-22 09:18 | NUR ---
TREATMENT TEAM WAS HELD WITH THE FOLLOWING : DR. CAREY, RNs, AT, SWs. RFERRALS WERE MADE TO OTHER FACILITIES IN [facility] AND TO [facility] IN [place]. PT TO BE DISCHARGED TODAY.
--- NOTE | 2017-09-22 09:18 | NUR ---
PILLO FAXED REFERRAL TO [facility].
--- NOTE | 2017-09-22 09:23 | NUR ---
ON UNIT TO ASSESS PT.
--- NOTE | 2017-09-22 10:22 | NUR ---
SW RECEIVED CALL FROM [facility] THAT THEY ARE UNABLE TO ACCEPT PT DUE TO BEING A SMALL COMMUNITY AND THEY DO NOT ACCEPT PT'S DX. TRY [facility] OR [facility].
--- NOTE | 2017-09-22 11:13 | NUR ---
SRINIVASAN FROM [facility]. ISRA INFORMED THAT ARE A SMALL FACILITY FOR SKILLED CARE AND DO NOT ACCPET BEHAVIOR PTS.
--- NOTE | 2017-09-22 12:50 | NUR ---
Goals/Exercise/I am greatful for... Patient was in attendence for group this morning as well as participated. Patient was withdrawn but spoke when directly spoken to,at times with a delayed response. Patient showed no signs of confusion or expressed any visual hallucinations while in group
--- NOTE | 2017-09-22 13:27 | NUR ---
PATIENT SEEN 1:1 30 MINUTES THIS DATE. PATIENT IDENTIFIED BY NAME AND DATE OF . PATIENT SEEN IN AM AND AT LUNCH THIS DATE. PATIENT COMPLETED BUE STRENGTHENING AROM ALL PLANES 2 SETS X 10 REPS ALL PLANES. PATIENT DEMONSTRATED INCREASE ALERTNESS AND PARTICIPATION THIS DATE. COMPLETED STANDING TOLERANCE X 2 CGA WITH 2 MIN X 1 AND 3 MINUTES X SECOND STAND USE FWW SUPPORT. PATIENT DEMONSTRATED CGA SIT TO STAND AND STAND TO SIT ARM CHAIR WITH MIN VERBAL CUES PROPER HAND PLACEMENT. PATIENT COMPLETED FEEDING DELGADO THIS DATE WITH FINGER FOODS. CONTINUE TOWARDS PLAN OF CARE. GARRY LOVE/Madhav
--- NOTE | 2017-09-22 14:20 | NUR ---
Director and SW called dtr. Sun in regards to pt. d/c plans. dtr. states that she had not received any follow up calls in regards to d/c planning and does not want her mother transferred to [place]. pt. dtr. states that pt. needs to be placed in [place] or [place]. Director and SW to call dtr. back once they speak with Dr. Martinez.
--- NOTE | 2017-09-22 14:24 | NUR ---
PILLO spoke with pt. who called in and states "pt. needs to come home with me". PILLO let know that the DrGabrielle would need to make that call and SW will call him back today.
--- NOTE | 2017-09-22 14:26 | NUR ---
PILLO spoke with Kyara in regards to pre-cert and whether or not it is still good. Kyara states that pre-cert is still good, but does not want pt. to come if she or her dtr. does not want it. PILLO states that the Director is involved with this pt. and d/c plans at this time and PILLO will call Kyara back tomorrow to follow up with her as to whether or not pt. will be coming there due to Kyara requeting a call on Friday because she was leaving the facility.
--- NOTE | 2017-09-22 15:24 | NUR ---
Spoke with Beatriz, Cold Work Operator twice today in regards to pt. referral. Beatriz had a stated this am that pt. was denied and then was confused as to why we were sending referrals again. Beatriz has made it clear that [facility] is no for admission.
--- NOTE | 2017-09-22 15:40 | NUR ---
Jeopardy coping skills, anger management and therapy/feelings goal Patient declined to attend group stating " I have to make phone calls." Patient encouraged to complete calls after group however patient continues to decline.
--- NOTE | 2017-09-22 16:01 | NUR ---
SW spoke with pt. , he "thinks" she needs to come home. I let him know that Carine is agreeing to go for atleast 30 days and then home with . SB, SW will send referrals out for [place] placement.
--- NOTE | 2017-09-22 17:26 | NUR ---
PT ALERT TO PERSON AND PLACE. PT MED COMPLIANT WITHOUT DIFFICULTY, MED EDUCATION PROVIDED. PT CONFUSED AT TIMES. PT OBSERVED TO HAVE SHORT TERM MEMORY DEFICITS. PT CALM,INTERACTING WITH STAFF AND PEERS. PT CAN BE DEMANDING AT TIMES. NO HALLUCAINTION OR DELUSIONS NOTED. PT DENIES ANY HOMICIDAL/SUICIDAL THOUGHTS. PT AMBULATORY WITH WHEELED WALKER AND 1 ASSIST. PT CONTINENT OF BOWEL AND BLADDER.TREATMENT PLAN TARGETS ALTERED THOUGHT PROCESS R/T INCREASED CONFUSION. PLAN IS TO ENCOURAGE PT TO VOICE ANY HALLUCINATIONS OR DELUISONS, PRESENT REALITY TO PT WITH EACH INTERACTION AND NEEDED, PROVIDE 1:1.
--- NOTE | 2017-09-22 19:48 | NUR ---
[facility] DECLINED PT. [facility] DUE TO PT NOT IN THEIR NETWORK.
--- NOTE | 2017-09-22 19:50 | NUR ---
PILLO SPOKE WITH DYNAMOMETER TUNER AT [facility] IN [place]. FAXED FACE SHEET. THEIR FAX MACHINE WAS ACTING UP AND IT DID NOT COME THORUGH. PILLO REFAXED FAX SHEET. DYNAMOMETER TUNER WILL RUN INSURANCE AND CALL FRIDAY MORNING TO INFORM IF THEY ACCEPT PT.
--- NOTE | 2017-09-22 19:52 | NUR ---
PILLO SPOKE WITH DTR GILBERTO TO INFORM HER OF DENIALS OF FCILITIES IN [place] AND [facility]. GILBERTO IS OK TO MAKE REFERRALS TO [facility]. DAVON ESCUDERO AT THE [facility] ( PT BEEN HERE BEFORE) SHAGUFTA DUCKWORTH. PILLO WILL LET DTR KNOW WHAT [facility] REPORTS IN THE MORNING.
[2017-09-22 20:00] VITALS: BP 143/57
--- NOTE | 2017-09-22 20:00 | NUR ---
STATES HAD A GOOD DAY. REFUSED LACTULOSE BECAUSE IT GIVES HER DIARRHEA. EXPLAINED IT WAS TO HELP LOWER THE AMMONIA IN HER SYSTEM BUT STILL REFUSED. MEDICATION COMPLIANT WITH PILLS. GAIT STEADY ON WALKER. STILL INSISTS THAT SHE IS GOING HOME TOMORROW.
--- NOTE | 2017-09-22 21:00 | NUR ---
REFUSED ALL PM CARE INCLUDING ORAL CARE
--- NOTE | 2017-09-23 01:46 | NUR ---
PATIENT TREATMENT PLAN TARGETS- 1-ALTERED THOUGHT PROCESS RELATED TO CONFUSION/ AND PARANOIA/ HOMICIDAL THOUGHTS 2- HALLUCINATIONS 3- FALL RISK INTERVENTION 1- CONTINUE TO REORIENT TO DATE, TIME AND PLACE. UNDERSTAND DANGERS OF CHASING SOMEONE WITH A KNIFE WITH THE INTENTIONS TO HURT THEM 2- DIFFERENCIATE BETWEEN HALLUCINATIONS AND REALITY 3- MONITOR GAIT PLAN 1- BE ORIENTED X'S3. NO HOMICIDAL IDEATIONS TOWARD FAMILY OR OTHERS. NO PARANOIA 2- NO HALLUCINATIONS 3. NO FALLS
--- NOTE | 2017-09-23 04:29 | NUR ---
C/O BACK PAIN 08/26. TYLENOL GIVEN PER REQUEST. REPOSITIONED TO SIDE
--- NOTE | 2017-09-23 05:04 | NUR ---
EYES CLOSED, APPEARS TYLENOL EFFECTIVE FOR PAIN
--- NOTE | 2017-09-23 05:35 | NUR ---
SLEPT FAIR PAST 2200PM 24 HR chart check completed.
[2017-09-23 08:04] VITALS: BP 119/67
--- NOTE | 2017-09-23 09:15 | NUR ---
TREATRMENT TEAM WAS HELD WITH THE FOLLOWING: DR. CAREY, MEDICAL STUDENT, RNs, ATs, SW. DR. CAREY SAID IT WAS OK TO MAKE REFERRALS FOR [facility]. SW REPORTED THAT [facility] WAS WAITING FOR [facility] TO DECIDE.
--- NOTE | 2017-09-23 09:48 | NUR ---
PHYSICAL THERAPY Carine was seen this AM 1:1 for her therapy session and having a better day today. Pt was up in the day room. All transfers were supervision x 1, no LOB. gait with wheeled walker 150' X 2, with CG X 1, no LOB and one sitting rest. Working on gait balance with gait backwards, right and left side stepping, and single leg stand MOD SALES INSPECTOR X 1. End with going over act Ex to bilateral LE cueing for each Ex. MARIA DEL CARMEN LOPEZ RESERVATION AGENT.
--- NOTE | 2017-09-23 10:07 | NUR ---
PATIENT SEEN 1:1 OT THIS DATE 30 MINUTES. PATIENT IDENTIFIED BY NAME AND DATE OF . PATIENT SEATED IN DAY ROOM. PATIENT COMPLETED SIT TO STAND ARM CHAIR CGA AMD COMPLETED FUNCTIONAL AMBULATION TO ROOM USE FWW CGA WITH VERBAL CUES FWW SAFETY/MANAGEMENT. PATIENT COMPLETED VARIOUS XFERS IN ROOM INCLUDED STS FROM BED X 2 CGA WITH VERBAL CUES PROPER HAND PLACEMENT FOR FALL PREVENTION AND AMBULATION TO BATHROOM USE FWW STANDING AT SINK WASHING HANDS CGA. PATIENT COMPLETED FUNCTIONAL REACHING ACTIVITY BENDING TO READJUST SOCKS CGA. PATIENT ALREADY DRESSED THIS DATE. PATIENT COMPLETED FUNCTIONAL AMBULATION USE FWW TO DAY ROOM CGA REPORTING THAT SHE WAS WAITING FOR TEA. PATIENT TRAY ARRIVED PATIENT COMPLETING FEEDING KS AFTER DELGADO. PATIENT ENCOURAGED TO OPEN SUGAR PACKETS THIS DATE FOR INCREASE INDEPENDENCE AND [facility]. PATIENT ABLE TO OPEN CONTAINERS MIN A THIS DATE WITH VERBAL INSTRUCTION. GARRY HENDERSON
--- NOTE | 2017-09-23 10:54 | NUR ---
PILLO RECEUVED CALL FRO DTR GILBERTO. PILLO INFORMED HER THAT [facility] HAS NOT RETURNED CALL. GILBERTO CARNESNTS PILLO TO CHANGE HER INSURANCE AND TALK WITH ARLEY HARP . PILLO HAS NOT HEARD FORM ARLEY HARP AND DOES NOT KNOW NUMBER OR NAME OF PERSON. GILBERTO WILL HAVE ARLEY HARP CALL PILLO. REFERRALS BEING SENT TO FACILTIES [place].
--- NOTE | 2017-09-23 11:10 | NUR ---
Goals, exercise and self esteem group Patient attended group with good participation. Patient able to state goal for the day and actively completed exercises. Patient able to discuss self esteem questions and fill out " A letter to me" paper with positive thoughts. Patient however at the end of group stated " I could kill myself" to other AC. AC reported it to nursing staff and manager social media. Patient then requested warm blankets due to being cold. Patient left in activity room with nursing staff.
--- NOTE | 2017-09-23 11:13 | NUR ---
Dr. Escobar here to see pt at this time, made aware of discharge pending for today.
--- NOTE | 2017-09-23 11:24 | NUR ---
PATIENT IS ALERT AND ORIENTED WITH PERIODS OF CONFUSION AT TIMES. ATTENDED AND PARTICIPATED IN AM GROUP THIS MORNING WITH APPROPRIATE BEHAVIOR AND ANWSERS. HAS BEEN COOPERATIVE WITH STAFF. NO DELUSIONS OR HALLUCINATIONS NOTED. NO VERBAL OR PHYSICAL COMBATIVE BEHAVIORS NOTED. MOOD IS STABLE WITH APPROPRAITE AFFECT THIS MORNING UPON INTERACTIONS. MEDICATION COMPLIANT WITHOUT DIFFICULTY. IMPROVEMENT WHILE COMPLETING ADLS INDEPENDENTLY OBSERVED. POSITIVE PEER AND STAFF INTERACTIONS NOTED. GOOD HYGIENE. COMPLETED ALL TREATMENT PLAN GOALS FOR DISCHARGE. SEE [facility] FLOWSHEET FOR SPECIFIC MONITORING.
--- NOTE | 2017-09-23 13:57 | NUR ---
site safety coordinator Note: faxed referral packets to [place], Odilia Nino [place] of [facility] Hanh called to accept patient to [facility] in [place], [place]. She agreed to set up transportation for the patient to come to their facility today.
--- NOTE | 2017-09-23 14:32 | NUR ---
PHYSICAL THERAPY CO-SIGN I approve of the Phyical Therapy notes written above. ROBERT DELACRUZ PT
--- NOTE | 2017-09-23 15:30 | NUR ---
Social RUIZ Patient attended group as well as participated. Patient was up beat and joking with other patients.Patient showed no signs of confusion or reported any visual hallucinations while attending group
--- NOTE | 2017-09-23 18:59 | NUR ---
SW REQUESTED AUTOMATION QA ANALYST FAX REFERRALS TO FACILITIES IN [facility]. LIST GIVEN TO HER.
--- NOTE | 2017-09-23 19:00 | NUR ---
SW MESSAGE THAT [facility] AND HAS ACCEPTED PT AND PT CAN BE RECEIVED TODAY. [facility] WILL SCHEDULE [facility] TRANSPORTATIONFOR PT.
--- NOTE | 2017-09-23 19:01 | NUR ---
DOMINIQUE FROM [facility] REQUESTED DISCHARGE ORDERS AND 9PAGE PASRR BE FAXED. FAXED REQUESTED INFORMATION TO DOMINIQUE.
--- NOTE | 2017-09-23 19:02 | NUR ---
PILLO POSEYIFED THAT [facility] WAS COMING TO PICKUP PT. PROVIDE A RIDE WILL BE PICKIING UP PT BY 8PM. THIS EVENING.
--- NOTE | 2017-09-23 19:03 | NUR ---
PILLO NOTIFIED PT AND DTR GILBERTO THAT [facility]. GILBERTO WAS GIVIEN THE ADDRESS AND PHONE NUMBER OF FACILITY.
--- NOTE | 2017-09-23 19:03 | NUR ---
SW AND RN REVIEWED DISCHARGE PAPERWORK WITH PT AND RECEIVED SIGNATURES. INFORMATION WAS COPIED FOR KENA AND PT.
[2017-09-23 19:51] VITALS: BP 130/55
--- NOTE | 2017-09-23 23:23 | NUR ---
PATIENT LEFT UNIT AT THIS TIME WITH ASSISTANCE OF STAFF AND SECURITY. BELONGINGS AND PAPERWORK SENT WITH PATIENT. VITAL SIGNS STABLE, NO SIGNS OR SYMPTOMS OF DISTRESS NOTED.
--- NOTE | 2017-09-23 23:41 | NUR ---
BIRGIT PIÑA CALLED AT NUMBER [phone], SPOKE WITH NURSE SUKHJINDER, NURSE AWARE THAT PATIENT LEFT UNIT AT 2323 VIA PROVIDE A RIDE WITH ATTENDENT X1 IN WHEELCHAIR.
--- NOTE | 2017-09-24 05:31 | NUR ---
PILLO spoke with Kyara yesterday when PILLO was out of office eleuterio rodríguez call to let her know that pt. would be placed in [place] in [place] for 30 day rehab stay. Kyara understood and states "please keep us in mind for future referrals."
--- NOTE | 2017-09-24 09:12 | NUR ---
OCCUPATIONAL THERAPY CO-SIGN I approve of the Occupational Therapy notes written above. SHANNAN TORRES OTR/Madhav
== END 2017-09-23 23:23 | disposition other institution (70) | DRG 885 ==
LOC: 3N 11:03
PROVIDERS: Registered Nurse; ADMIT Psychiatry & Neurology Psychiatry
DX: F31.63 Bipolar disorder, current episode mixed, severe, without psychotic features (principal); F31.12 Bipolar disorder, current episode manic without psychotic features, moderate; F43.9 Reaction to severe stress, unspecified; I10 Essential (primary) hypertension; M19.91 Primary osteoarthritis, unspecified site; N32.81 Overactive bladder; G25.0 Essential tremor; Z82.49 Family history of ischemic heart disease and other diseases of the circulatory system; Z88.2 Allergy status to sulfonamides; Z88.8 Allergy status to other drugs, medicaments and biological substances; Z79.82 Long term (current) use of aspirin; Z79.899 Other long term (current) drug therapy; R07.89 Other chest pain